=== PATIENT | male | born 1990 | race Caucasian/White ===

== ENCOUNTER → 2018-06-16 14:14 | Outpatient (CLI) | payer OTHER, SELFPAY ==
--- NOTE | 2018-06-16 14:23 | MR_ITS ---
MR knee LT wo con HISTORY: Twisting injury with pain with limited range of motion and instability ITS.REASON: LEFT KNEE PAIN ORDERING PHYSICIAN: Kostas Ramirez PATIENT AGE: 28 years Comparison: None TECHNIQUE: Standard multiplanar multiecho sequences are performed without contrast. FINDINGS: The cruciate ligaments are intact. The collateral ligaments, patellar tendon, and quadriceps tendon are intact. No meniscal tear is evident. There is mild lateral subluxation of the patella with discontinuity of the medial aspect of the medial patellofemoral ligament. There is a small knee joint effusion. Small amount of edema is noted along the distal and lateral aspect of the femur at the metaphyseal region of the lateral femoral condyle consistent with an area of bone bruise. There is also small amount of bone marrow edema involving the inferior tip of the patella. There is a small knee joint effusion IMPRESSION: 1. The findings are consistent with tear of the medial patellofemoral ligament with mild lateral subluxation of the patella. Bone marrow edema involves the lateral femoral condyle consistent with bone contusion likely from prior lateral patellar dislocation. 2. No evidence of meniscal tear or cruciate ligament tear
== END ==
PROVIDERS: PCP Physician Assistant; Visit Provider Orthopaedic Surgery Adult Reconstructive Orthopaedic Surgery
DX: M25.562 Pain in left knee (principal)
CPT/HCPCS: 73721

== ENCOUNTER 2018-07-06 15:00 | Outpatient (RCR) | payer OTHER, SELFPAY | END 2018-07-24 14:09 | disposition home or self-care (01) | LOC: PT.CARL 15:00 | PROVIDERS: Visit Provider Orthopaedic Surgery Adult Reconstructive Orthopaedic Surgery | DX: M25.562 Pain in left knee (principal) | CPT/HCPCS: 97014; 97110; 97163; G0283 ==

== ENCOUNTER 2018-11-20 16:30 | Outpatient (RCR) | payer OTHER, SELFPAY | END 2018-12-13 16:30 | disposition home or self-care (01) | LOC: PT.CARL 16:30 | PROVIDERS: Visit Provider Nurse Practitioner Family | DX: S83.006A Unspecified dislocation of unspecified patella, initial encounter (principal); M23.8X2 Other internal derangements of left knee | CPT/HCPCS: 97010; 97014; 97110; 97112; 97116; 97163; 97164; G0283 ==

== ENCOUNTER 2019-11-17 10:45 | Emergency (ER) | payer MEDICAID, SELFPAY ==
[2019-11-17 10:54] VITALS: BP 149/86; PULSE 87; RESP 14; TEMP 37; O2SAT 97; BMI 36.8
--- NOTE | 2019-11-17 11:02 | HMH.EDUTC ---
[facility] [place] Disposition Clinical Impression: Bug bite with infection Qualifiers: Encounter type: initial encounter Qualified Code(s): W57.XXXA - Bitten or stung by nonvenomous insect and other nonvenomous arthropods, initial encounter Disposition: Home, Self-Care Condition on Discharge: Good Instructions: DI for Insect Bites and Stings Additional Instructions: Keep the wound clean and dry. Apply the medication as directed. Follow up with your primary care physician. GO TO THE ER FOR ANY WORSENING SYMPTOMS OR CONCERNS Prescriptions: Mupirocin [Bactroban 2% Ointment 22gm tube] 1 applicatio TP TID 7 Days #1 tube Transmission Status: Received by [id number] Referrals: Melinda Palacios APRN [Primary Care Provider] - Time of Disposition: 11:21 Medical Decision Making - Medical Records Medical records reviewed: No: I reviewed the patient's medical records. - Gregory Inquiry Pt receiving controlled substance: No Vital Signs: 11/17/19 10:54 11/17/19 11:29 Temperature 98.6 F 98.6 F Temperature Source Oral Pulse Rate 87 Pulse Rate [Left Brachial] 87 Respiratory Rate 14 14 Blood Pressure 149/86 H Blood Pressure [Left Arm] 149/86 H Blood Pressure Mean [Left Arm] 107 Blood Pressure Source [Left Arm] Automatic Cuff Blood Pressure Position [Left Arm] Sitting 02 Sat by Pulse Oximetry 97 Oxygen Delivery Method Room Air Orders (Tests/Meds): ORDERS Category Date Time Status Wound Culture and Gram Stain Stat Micro 11/17/19 11:25 Results [facility] [place] HPI - General Stated complaint: spot on right arm Time Seen by Provider: 11/17/19 11:02 Mode of Arrival: Ambulatory Source of Information: Patient Limitations: No Limitations Description of Symptoms (Recalled from Triage Doc. by RN): PATIENT C/O RASH TO RIGHT ARM SINCE YESTERDAY THAT IS TENDER TO TOUCH HEENT Symptoms (Recalled from RN notes): No Resp Symptoms (Recalled from RN notes): No Skin Symptoms (Recalled from RN notes): Yes MS Symptoms (Recalled from RN notes): No Functional Status (Recalled from RN notes): WNL - History of Present Illness Provider Complaint: He c/o having a skin lesion on his right forearm. He first noticed this lesion yesterday. He denies any pain or itching at the site. He denies any injury or exposure to known irritants like poison cedrick. - Related Data Home Medications Medication Instructions Recorded Confirmed Cetirizine HCl [Zyrtec] 10 mg PO DAILY 11/17/19 11/17/19 Previous Rx's Medication Instructions Recorded Mupirocin [Bactroban 2% Ointment 1 applicatio TP TID 7 Days #1 tube 11/17/19 22gm tube] Allergies Allergy/AdvReac Type Severity Reaction Status Date / Time No Known Allergies Allergy Verified 03/15/19 13:59 - Worker's Comp Is this a Worker's Comp case?: No [facility] History - Hepatitis A Screen Drug use history?: No High risk sexual behaviors?: No History of sexually transmitted infection?: No Currently employed?: No Childcare worker?: No Do you have indoor plumbing?: Yes Do you have electricity?: Yes Attestation statement:: This patient has been screened for Hepatitis A risk factors. I have reviewed the patient's past medical history: Yes Medical History: Denies:: Diabetes Mellitus Type 1, Diabetes Mellitus Type 2 - Social History Smoking Status: Never smoker Alcohol Intake: never Occupational Status: other ROS Obtained: Yes All systems reviewed & no additional complaints - Constitutional Constitutional: Denies chills, Denies fever(s) - Eyes Eyes: Denies eye discharge - ENT Ears, Nose, Mouth, and Throat: Denies dizziness, Denies otalgia, Denies sore throat - Cardiovascular Cardiovascular: Denies chest pain - Respiratory Respiratory: No chest congestion, No cough Physical Exam - General General appearance: alert, in no apparent distress - Head Head exam: atraumatic, normocephalic, normal inspection - Eye Eye exam: Present: norm
[2019-11-17 11:29] VITALS: BP 149/86; PULSE 87; RESP 14; TEMP 37; O2SAT 97
== END 2019-11-17 11:33 | disposition home or self-care (01) ==
PROVIDERS: Emergency Provider Nurse Practitioner Family; PCP Nurse Practitioner Family
DX: S50.861A Insect bite (nonvenomous) of right forearm, initial encounter (principal); L08.9 Local infection of the skin and subcutaneous tissue, unspecified; W57.XXXA Bitten or stung by nonvenomous insect and other nonvenomous arthropods, initial encounter
CPT/HCPCS: 87070; 87077; 87186; 87205; 99201

== ENCOUNTER 2019-11-27 11:45 | Emergency (ER) | payer MEDICAID, SELFPAY ==
[2019-11-27 11:52] VITALS: BP 149/91; PULSE 81; RESP 18; TEMP 36.7; O2SAT 99; BMI 35.9
--- NOTE | 2019-11-27 12:01 | HMH.EDUTC ---
[facility] [place] [facility] [place] Clinical Impression: Sinusitis Qualifiers: Sinusitis location: unspecified location Chronicity: acute Recurrence: non-recurrent Qualified Code(s): J01.90 - Acute sinusitis, unspecified Asthma exacerbation Qualifiers: Asthma severity: unspecified severity Asthma persistence: unspecified Qualified Code(s): J45.901 - Unspecified asthma with (acute) exacerbation Disposition: Home, Self-Care Condition on Discharge: Good Instructions: Sinusitis, DI for Sinusitis Additional Instructions: Drink plenty of fluids. Take tylenol or ibuprofen for pain or fever. Take the medications as directed. Follow up with your regular doctor. GO TO THE ER FOR ANY WORSENING SYMPTOMS Prescriptions: methylPREDNISolone [Medrol] 4 mg PO DIRECTED 6 Days #21 tab.ds.pk Transmission Status: Received by [id number] Azithromycin [Z-Ra 250mg Tab*] 250 mg PO UD DOSE PK #6 tab Transmission Status: Received by [facility] Referrals: PCP,No [Primary Care Provider] - Forms: Work/School Release Time of Disposition: 12:22 Medical Decision Making - Medical Records Medical records reviewed: No: I reviewed the patient's medical records. - Gregory Inquiry Pt receiving controlled substance: No Vital Signs: 11/27/19 11:52 11/27/19 12:35 Temperature 98.1 F 98.1 F Temperature Source Oral Pulse Rate 81 Pulse Rate [Right Brachial] 81 Respiratory Rate 18 18 Blood Pressure 149/91 H Blood Pressure [Right Arm] 149/91 H Blood Pressure Mean [Right Arm] 110 Blood Pressure Source [Right Arm] Automatic Cuff Blood Pressure Position [Right Arm] Sitting 02 Sat by Pulse Oximetry 99 Oxygen Delivery Method Room Air [facility] [place] [facility] [place] HPI - General Stated complaint: sinus infection Time Seen by Provider: 11/27/19 12:01 Mode of Arrival: Ambulatory Source of Information: Patient Limitations: No Limitations Description of Symptoms (Recalled from Triage Doc. by RN): PATIENT C/O SINUS PRESSURE AND DRAINAGE AND COUGH X 2 DAYS HEENT Symptoms (Recalled from RN notes): Yes Resp Symptoms (Recalled from RN notes): Yes Skin Symptoms (Recalled from RN notes): No MS Symptoms (Recalled from RN notes): No Functional Status (Recalled from RN notes): WNL - History of Present Illness Provider Complaint: He c/o 2 days of worsening sinus congestion. He states that he has allergies and asthma and he gets sinus infections this time of year often. He denies any known exposure to covid and he does not want to be tested today for it. He denies any fever or chills. - Related Data Home Medications Medication Instructions Recorded Confirmed Cetirizine HCl [Zyrtec] 10 mg PO DAILY 11/17/19 11/17/19 Previous Rx's Medication Instructions Recorded Mupirocin [Bactroban 2% Ointment 1 applicatio TP TID 7 Days #1 tube 11/17/19 22gm tube] Azithromycin [Z-Ra 250mg Tab*] 250 mg PO UD DOSE PK #6 tab 11/27/19 methylPREDNISolone [Medrol] 4 mg PO DIRECTED 6 Days #21 11/27/19 tab.ds.pk Allergies Allergy/AdvReac Type Severity Reaction Status Date / Time No Known Allergies Allergy Verified 03/15/19 13:59 - Worker's Comp Is this a Worker's Comp case?: No [facility] History - Hepatitis A Screen Drug use history?: No High risk sexual behaviors?: No History of sexually transmitted infection?: No Currently employed?: No Childcare worker?: No Do you have indoor plumbing?: Yes Do you have electricity?: Yes Attestation statement:: This patient has been screened for Hepatitis A risk factors. I have reviewed the patient's past medical history: Yes Medical History: Denies:: Diabetes Mellitus Type 1, Diabetes Mellitus Type 2 - Social History Smoking Status: Never smoker Alcohol Intake: never Occupational Status: other ROS Obtained: Yes All systems reviewed & no additional complaints - Constitutional Constitutional: Denies chills, Denies fever(s), Reports poor appetite, Reports malaise - Eyes Eyes: Denies
[2019-11-27 12:35] VITALS: BP 149/91; PULSE 81; RESP 18; TEMP 36.7; O2SAT 99
== END 2019-11-27 12:37 | disposition home or self-care (01) ==
PROVIDERS: Emergency Provider Nurse Practitioner Family
DX: J01.90 Acute sinusitis, unspecified (principal); J45.901 Unspecified asthma with (acute) exacerbation
CPT/HCPCS: 99201

== ENCOUNTER 2020-05-28 16:27 | Emergency (ER) | payer MEDICAID, SELFPAY ==
[2020-05-28 16:30] VITALS: BP 140/91; PULSE 89; RESP 17; TEMP 37; O2SAT 98; BMI 37.3
[2020-05-28 16:47] LABS: UTC Strep Screen (Rapid) Positive (Negative)
--- NOTE | 2020-05-28 16:47 | HMH.EDUTC ---
[facility] Disposition Clinical Impression: Cough, Strep throat Disposition: Home, Self-Care Condition on Discharge: Good Instructions: DI for Strep Throat, Strep Throat, Penicillin V Potassium, Cough Additional Instructions: *Monitor Temp, Over the counter Motrin or Tylenol as directed/as needed Tylenol every 4 hours and Motrin every 6 hours (as long as your family doctor has told you that you can take it) for fever or pain. and straight to ER if unable to lower temp less than 101.0 after medication given *Warm salt water gargles may help to soothe the throat *Throat Lozenges *Warm fluids like tea with honey may help to soothe the throat *Sleep elevated *Humidifier/Vaporizer *Bromfed may cause drowsiness. Know how it effects you (your child) before driving, caring for small child, or sending your child to school. Not other antihistamines/allergy medications while taking bromfed *If you did not take Penicillin shot or was unable to, start taking antibiotic immediately and make sure that you take it for the FULL length of time although you should start to feel better in 24-48 hours *change toothbrush and toothpaste 24-48 hours after starting to take antibiotics so you do not reinfect yourself Monitor Temp. Tylenol and/or Ibuprofen as needed. ER if fever is no less than 101 despite alternating Tylenol and Ibuprofen * Encourage fluids, water, Gatorade, powerade, pedialyte if infant/toddler/or child *Cold fluids, popsicles and ice cream may feel good on his throat Follow up IMMEDIATELY for new or worsening symptoms or no Noticeable improvement over the next 48-72 hours. 911 for difficulty breathing or swallowing Prescriptions: Brompheniramine/Pseudoephed/Dm [Bromfed Dm Cough Syrup] 5 - 10 ml PO Q46H PRN #200 ml PRN Reason: Cough [facility]: [facility] Penicillin V Potassium 500 mg PO BID 10 Days #20 tab Transmission Status: Pending to [facility] Referrals: Melinda Palacios APRN [Primary Care Provider] - As needed Forms: Work/School Release Time of Disposition: 16:53 Medical Decision Making - Gregory Inquiry Pt receiving controlled substance: No Gregory was queried for this patient: No Vital Signs: 05/28/20 16:30 Temperature 98.6 F Temperature Source Oral Pulse Rate [Right Brachial] 89 Respiratory Rate 17 Blood Pressure [Right Arm] 140/91 H Blood Pressure Mean [Right Arm] 107 Blood Pressure Source [Right Arm] Automatic Cuff Blood Pressure Position [Right Arm] Sitting 02 Sat by Pulse Oximetry 98 Oxygen Delivery Method Room Air - Lab Data Lab results reviewed: Yes: I reviewed the patient's lab results. [facility] HPI - General Stated complaint: sore throat Time Seen by Provider: 05/28/20 16:47 Mode of Arrival: Ambulatory Source of Information: Patient Limitations: No Limitations Description of Symptoms (Recalled from Triage Doc. 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
[2020-05-28 16:48] VITALS: BP 140/91; PULSE 89; RESP 17; TEMP 37; O2SAT 98
== END 2020-05-28 16:57 | disposition home or self-care (01) ==
PROVIDERS: Emergency Provider Nurse Practitioner; PCP Nurse Practitioner Family
DX: J02.0 Streptococcal pharyngitis (principal)
CPT/HCPCS: 87880; 99202; G0463

== ENCOUNTER 2020-06-11 11:27 | Emergency (ER) | payer MEDICAID, SELFPAY ==
--- NOTE | 2020-06-11 11:20 | ECG_ITS ---
APPROVED REPORT Exam: Resting ECG HR:83 bpm ECG Measurements Heart Rate 83 AXES ID 160 P 43 QRSd 102 QRS 40 QT 360 T 36 QTc 423 Conclusion Normal sinus rhythm Normal ECG Electronically signed by : Blade Kelley, 06/11/2020 17:33:53
[2020-06-11 11:27] VITALS: BP 134/107; PULSE 91; RESP 17; TEMP 36.7; O2SAT 97; BMI 37.3
--- NOTE | 2020-06-11 11:28 | XR_ITS ---
PROCEDURE: XR CHEST 2V CLINICAL HISTORY: CP Chest pain COMPARISON: CR XR CHEST 2V from 05/26/2019 FINDINGS: The cardiomediastinal silhouette and pulmonary vascularity are within normal limits. Mildly elevated left hemidiaphragm with minimal left basilar atelectasis. The remaining lungs are clear. No acute bony abnormalities. IMPRESSION: Minimal left basilar atelectasis Dictated by: Jelani Ceballos MD 06/11/2020 12:44 Jelani Ceballos MD in [place] 06/11/2020 12:44
[2020-06-11 11:30] VITALS: BP 149/97; PULSE 82; RESP 18; O2SAT 95
--- NOTE | 2020-06-11 11:39 | HMH.EDGENADL ---
ED Disposition Clinical Impression: Chest pain Qualifiers: Chest pain type: unspecified Qualified Code(s): R07.9 - Chest pain, unspecified Disposition: Home, Self-Care Condition on Discharge: Good Additional Instructions: Use Pepto-Bismol. Follow a bland diet without alcohol and avoid NSAIDs or any other agents that could upset your stomach. Follow-up with your PCP. Return immediately if any recurrent symptoms or new or worsening symptoms. - Critical Care Critical Care Time: No Attestation: On , the high probability of a clinically significant, sudden or life threatening deterioration of the following system(s) required my full and direct attention, intervention and personal management. The time I documented below is in addition to time spent performing reported procedures but includes the following listed in this critical care notation. Medical Decision Making - Medical Records Medical records reviewed: Yes: I reviewed the patient's medical records. - Gregory Inquiry Pt receiving controlled substance: No Vital Signs: 06/11/20 11:27 06/11/20 11:30 06/11/20 11:45 Temperature 98.1 F Temperature Source Oral Pulse Rate 82 82 Pulse Rate [Right] 91 H Respiratory Rate 17 18 20 Blood Pressure 149/97 H 149/97 H Blood Pressure [Right Arm] 134/107 H Blood Pressure Mean [Right Arm] 116 02 Sat by Pulse Oximetry 97 95 95 Oxygen Delivery Method Room Air 06/11/20 12:00 Temperature Temperature Source Pulse Rate 84 Pulse Rate [Right] Respiratory Rate 21 Blood Pressure 124/85 Blood Pressure [Right Arm] Blood Pressure Mean [Right Arm] 02 Sat by Pulse Oximetry 95 Oxygen Delivery Method - Lab Data Lab Results 06/11/20 11:26: WBC 8.8, RBC 5.93, Hgb 17.2, Hct 51.7, MCV 87.3, MCH 29.1, MCHC 33.3, RDW 13.1, Plt Count 284, MPV 8.2, Neut % (Auto) 59.4, Lymph % (Auto) 31.8, [place] % (Auto) 5.1, Eos % (Auto) 2.3, Baso % (Auto) 1.3, Neut # (Auto) 5.2, Lymph # (Auto) 2.8, [place] # (Auto) 0.5, Eos # (Auto) 0.2, Baso # (Auto) 0.1 06/11/20 11:26: Sodium 141, Potassium 3.4 L, Chloride 100, Carbon Dioxide 30, Anion Gap 14.4, BUN 17, Creatinine 0.80, Estimated Creat Clear 236, Estimated GFR 113, Est GFR ( Amer) 136, Calcium 9.8, Troponin I < 0.01 06/11/20 11:26: Lipase 47 Result diagrams: 06/11/20 11:26 06/11/20 11:26 Orders (Tests/Meds): ED MEDICATIONS Discontinued Medications Generic Name Dose Route Start Last Admin Trade Name Freq PRN Reason Stop Dose Admin Belladonna Alkaloids 60 ml 06/11/20 11:44 06/11/20 11:46 Gi Cocktail 60ml Udc PO 06/11/20 11:45 60 ml ONCE ONE Administration ORDERS Category Date Time Status Basic Metabolic Panel Stat Lab 06/11/20 11:26 Results Troponin I Q3H Lab 06/11/20 14:30 Ordered Troponin I Q3H Lab 06/11/20 17:30 Ordered Troponin I Stat Lab 06/11/20 11:26 Results - ECG Data Tracing #1 I reviewed this ECG and interpreted as documented below: EKG demonstrates normal sinus rhythm at 83 bpm; no acute ST elevation/depression; no T wave inversion; QTC 423 ms Medical Decision Narrative: Patient is a 30-year-old male presenting with chest pain. EKG obtained immediately upon arrival demonstrates no acute ischemic process. ACS on the differential so cardiac enzyme testing will be obtained patient will remain on cardiac monitors throughout entirety of ER stay. Other differential diagnoses do include but are not limited to pneumothorax versus pneumonia versus anemia versus GERD versus gastritis versus pancreatitis versus costochondritis versus diffuse esophageal spasm. X-ray to be obtained to ensure no pneumothorax or other acute cardiopulmonary abnormality. Basic lab work with lipase will also be obtained. I am concerned the patient is having some dyspepsia and substernal/epigastric pain after being on steroids. He could be developing ulcer with gastritis. Again no melena or hematochezia. GI cocktail given in the ER. Labs nonacti
[2020-06-11 11:43] LABS: Chloride 100 mmol/L (98-107); Sodium 141 mmol/L (136-145)
[2020-06-11 11:44] LABS: Potassium 3.4 mmoL/L (3.5-5.1)
[2020-06-11 11:45] VITALS: BP 149/97; PULSE 82; RESP 20; O2SAT 95
[2020-06-11 11:46] LABS: Blood Urea Nitrogen 17 mg/dl (9-20); Creatinine Clearance Estimated 236 mL/min (50-200); Estimated Glomerular Filt Rate 113 ml/min (>60); GFR (African American) 136 ML/MIN (>60)
[2020-06-11 11:47] LABS: Anion Gap 14.4 mEq/L (5-15); Carbon Dioxide 30 mmol/L (22.0-30.0)
[2020-06-11 11:50] LABS: Basophils # 0.1 K/mm3 (0-0.2); Basophils % 1.3 % (0.1-2.0); Eosinophils # 0.2 K/mm3 (0.0-0.4); Eosinophils % 2.3 % (0.1-12.0); Hematocrit 51.7 % (42.0-52.0); Hemoglobin 17.2 g/dL (14.1-18.0); Lymphocytes # 2.8 K/mm3 (0.7-4.5); Lymphocytes % 31.8 % (10-50); Mean Corpuscular HGB Conc 33.3 g/dL (31.8-35.4); Mean Corpuscular Hemoglobin 29.1 pg (27.0-31.2); Mean Corpuscular Volume 87.3 fl (80-94); Mean Platelet Volume 8.2 fl (7.4-10.4); Monocytes # 0.5 K/mm3 (0.1-1.0); Monocytes % 5.1 % (1.7-9.3); Neutrophils # 5.2 K/mm3 (1.8-7.8); Neutrophils % 59.4 % (37.0-80.0); Platelet Count 284 K/mm3 (142-424); Red Blood Count 5.93 M/mm3 (4.60-6.20); Red Cell Distribution Width 13.1 % (11.5-17.5); White Blood Count 8.8 K/mm3 (4.8-10.8)
[2020-06-11 11:53] LABS: Calcium 9.8 mg/dl (8.4-10.2)
[2020-06-11 11:54] LABS: Lipase 47 U/L (23-300)
[2020-06-11 12:00] VITALS: BP 124/85; PULSE 84; RESP 21; O2SAT 95
[2020-06-11 12:13] LABS: Troponin I < 0.01 ng/ml (0.00-0.034)
--- NOTE | 2020-06-11 12:48 | PC.NURSE ---
MD at bedside. Updating pt on plan of care and results.
[2020-06-11 13:16] VITALS: BP 125/79; PULSE 87; RESP 19; TEMP 36.7; O2SAT 98
[2020-06-11 13:29] LABS: Glucose 87 mg/dl (74-100)
== END 2020-06-11 13:15 | disposition home or self-care (01) ==
PROVIDERS: Emergency Provider Emergency Medicine; PCP Nurse Practitioner Family
DX: R07.9 Chest pain, unspecified (principal); J45.909 Unspecified asthma, uncomplicated
CPT/HCPCS: 71046; 80048; 83690; 84484; 85025; 93005; 99282

== ENCOUNTER 2020-10-07 10:06 | Emergency (ER) | payer MEDICAID, SELFPAY ==
[2020-10-07 10:30] VITALS: BP 138/94; PULSE 82; RESP 19; TEMP 36.6; O2SAT 98; BMI 34.5
[2020-10-07 10:35] VITALS: BMI 32.1
--- NOTE | 2020-10-07 10:35 | XR_ITS ---
PROCEDURE: XR RIBS RT MIN 3V W CXR1V CLINICAL INDICATION: FELL OFF LADDER Anterior rib pain COMPARISON: CR XR CHEST 2V from 05/26/2019 CR XR CHEST 2V from 06/11/2020 FINDINGS: Frontal view of the chest shows no acute finding. Multiple views of the right ribs are obtained. No displaced rib fracture is evident. There is some cortical regularity involving the anterior aspect of the right 6th and 7th ribs suggesting nondisplaced fractures. No evidence of pneumothorax. IMPRESSION: There is a question of a nondisplaced fracture of the right 6th and 7th ribs anteriorly otherwise negative Dictated by: Jelani Ceballos MD 10/07/2020 11:04 Jelani Ceballos MD in [place] 10/07/2020 11:04
[2020-10-07 11:00] VITALS: BP 138/94; PULSE 82; RESP 19; TEMP 36.6; O2SAT 98
--- NOTE | 2020-10-07 11:02 | HMH.EDUTC ---
[facility] [place] Disposition Clinical Impression: Ribs, multiple fractures Qualifiers: Encounter type: initial encounter Fracture type: closed Laterality: right Qualified Code(s): S22.41XA - Multiple fractures of ribs, right side, initial encounter for closed fracture Disposition: Home, Self-Care Condition on Discharge: Good Instructions: Rib Fracture, DI for Rib Fracture, Etodolac Additional Instructions: *Etodlac angella 6 hours with meal as needed for pain/inflammation Over the counter lidocaine patches may help with pain Stop taking Ibuprofen and start Etodlac *Not additional anti-inflammatory like Ibuprofen, motrin, aleve, advil with the above amount of Etodolac. You can still take Tylenol every 4 hours as needed if you need something else for pain *Ice 20 minutes every 2 hours for the first 48 hours after the initial injury followed by moist heat every 20 minutes 3-4 times a day to affected area *Keep this area active, no movement leads to more stiffness, However take it easy and avoid heavy lifting pushing or pulling *Follow up with you family doctor if no improvement for further treatment Return if needed Straight to ER if any life threatening symptoms Prescriptions: Etodolac 200 mg PO Q6HP PRN #20 cap PRN Reason: Moderate Pain Transmission Status: Pending to [id number] Referrals: Melinda Palacios APRN [Primary Care Provider] - As needed Time of Disposition: 11:18 Medical Decision Making - Gregory Inquiry Pt receiving controlled substance: No Gregory was queried for this patient: No Vital Signs: 10/07/20 10:30 10/07/20 11:00 Temperature 97.8 F 97.8 F Temperature Source Oral Pulse Rate 82 Pulse Rate [Right Brachial] 82 Respiratory Rate 19 19 Blood Pressure 138/94 H Blood Pressure [Right Arm] 138/94 H Blood Pressure Mean [Right Arm] 108 Blood Pressure Source [Right Arm] Automatic Cuff Blood Pressure Position [Right Arm] Sitting 02 Sat by Pulse Oximetry 98 Oxygen Delivery Method Room Air - Radiology Data #1 Image(s): Chest (with right ribs) Image Reviewed: Yes I have reviewed radiologist's interpretation IMPRESSION: There is a question of a nondisplaced fracture of the right 6th and 7th ribs anteriorly otherwise negative [facility] [place] HPI - General Stated complaint: ao [id number] @1600 fell off latter 7ft injured r side Time Seen by Provider: 10/07/20 11:02 Mode of Arrival: Ambulatory Source of Information: Patient Limitations: No Limitations Description of Symptoms (Recalled from Triage Doc. by RN): PATIENT STATE HE FELL APPROX 7 FEET OFF OF A LADDER ON 10/04/20. C/O PAIN TO RIGHT RIBS HEENT Symptoms (Recalled from RN notes): No Resp Symptoms (Recalled from RN notes): No Skin Symptoms (Recalled from RN notes): No MS Symptoms (Recalled from RN notes): Yes Functional Status (Recalled from RN notes): WNL - History of Present Illness Provider Complaint: Patient state that he fell off ladder on 10/04/20 and landed on his right side on a bar, was seen in ER at [place] States that they did xrays and stuff and put him on Motrin but the pain is not improved and hurts in his right ribs when he takes a deep breath or moves certain ways States that he came in wanting to get checked again and see if there is anything else he can get for the pain - Related Data Previous Rx's Medication Instructions Recorded Etodolac 200 mg PO Q6HP PRN #20 cap 10/07/20 Allergies Allergy/AdvReac Type Severity Reaction Status Date / Time No Known Allergies Allergy Verified 03/15/19 13:59 - Worker's Comp Is this a Worker's Comp case?: No [facility] History - Hepatitis A Screen Drug use history?: No High risk sexual behaviors?: No History of sexually transmitted infection?: No Currently employed?: No Childcare worker?: No Do you have indoor plumbing?: Yes Do you have electricity?: Yes Attestation statement:: This patient has been screened for Hepatitis A risk factors. I have reviewed the patient's past medi
== END 2020-10-07 11:29 | disposition home or self-care (01) ==
PROVIDERS: Emergency Provider Nurse Practitioner; PCP Nurse Practitioner Family
DX: S22.41XA Multiple fractures of ribs, right side, initial encounter for closed fracture (principal); W11.XXXA Fall on and from ladder, initial encounter; Y92.019 Unspecified place in single-family (private) house as the place of occurrence of the external cause
CPT/HCPCS: 71101; 99202; G0463

== ENCOUNTER 2020-10-29 11:06 | Emergency (ER) | payer MEDICAID, SELFPAY ==
[2020-10-29 12:05] VITALS: BP 126/91; PULSE 103; RESP 18; TEMP 37; O2SAT 95; BMI 36.6
--- NOTE | 2020-10-29 12:11 | HMH.EDUTC ---
[facility] [place] Clinical Impression: Viral syndrome, Encounter for laboratory testing for COVID-19 virus Disposition: Home, Self-Care Condition on Discharge: Good Instructions: DI for COVID-19 (Suspected or Confirmed ), Preventing the Spread of Coronavirus Discharge Instructions Additional Instructions: *Monitor Temp, Over the counter Motrin or Tylenol as directed/as needed Tylenol every 4 hours and Motrin every 6 hours (as long as your family doctor has told you that you can take it) for fever or pain. and straight to ER if unable to lower temp less than 101.0 after medication given *Warm salt water gargles may help to soothe the throat *Throat Lozenges *Warm fluids like tea with honey may help to soothe the throat *Sleep elevated *Humidifier/Vaporizer Over the counter cough medication like Robitussin may help with cough and mucous Make sure to drink plenty of fluids and eat healthy diet Follow up IMMEDIATELY for new or worsening symptoms or no Noticeable improvement over the next 48-72 hours. 911 for difficulty breathing or swallowing You were tested for today for COVID19 your test result should be back in the next 24-48 hours, you was given instructions on how to [facility] for your results. If you do not have internet or access you may call the [facility]. You was given a handout with instructions for Self Quarantine and Self isolation for while you wait on test results and what to do if they are positive If you are positive the Health Dept will be contacting you also Make sure to take your Vitamins Vit. C Vit D and Zinc if you can take them Referrals: Melinda Palacios APRN [Primary Care Provider] - As needed Forms: Work/School Release Time of Disposition: 12:44 Medical Decision Making - Gregory Inquiry Pt receiving controlled substance: No Gregory was queried for this patient: No Vital Signs: 10/29/20 12:05 Temperature 98.6 F Temperature Source Oral Pulse Rate [Left Radial] 103 H Respiratory Rate 18 Blood Pressure [Left Arm] 126/91 H Blood Pressure Mean [Left Arm] 102 Blood Pressure Source [Left Arm] Automatic Cuff Blood Pressure Position [Left Arm] Sitting 02 Sat by Pulse Oximetry 95 Oxygen Delivery Method Room Air Orders (Tests/Meds): ORDERS Category Date Time Status Covid-19 Nasal PCR ([facility]) Routine Lab 10/29/20 12:08 [place] [facility] [place] - General Stated complaint: sore throat, body aches, fever Time Seen by Provider: 10/29/20 12:11 Mode of Arrival: Ambulatory Source of Information: Patient Limitations: No Limitations Description of Symptoms (Recalled from Triage Doc. by RN): pt c/o sore throat, body aches, fever, headache and cough. Pt reports symtpoms began 4 days ago. Pt is also having similar symptoms and was exposed to a positive covid pt. HEENT Symptoms (Recalled from RN notes): Yes (sore throat) Resp Symptoms (Recalled from RN notes): Yes (cough) Skin Symptoms (Recalled from RN notes): No MS Symptoms (Recalled from RN notes): No Functional Status (Recalled from RN notes): n/a - History of Present Illness Provider Complaint: Patient states that he has not felt well for about 4 days States that he has been having sore throat, headache, cough, and body aches State that mother law was positive for COVID but he wasnt around her but is having same symptoms and was around her so he wanted to get tested for COVID - Related Data Allergies Allergy/AdvReac Type Severity Reaction Status Date / Time No Known Allergies Allergy Verified 03/15/19 13:59 - Worker's Comp Is this a Worker's Comp case?: No [facility] History - Hepatitis A Screen Drug use history?: No High risk sexual behaviors?: No History of sexually transmitted infection?: No Currently employed?: No Childcare worker?: No Do you have indoor plumbing?: Yes Do you have electricity?: Yes Attestation statement:: This patient has been screened for Hepatitis A risk factors. I have reviewed the patient
[2020-10-29 12:57] VITALS: BP 126/91; PULSE 103; RESP 18; TEMP 37; O2SAT 95
== END 2020-10-29 12:58 | disposition home or self-care (01) ==
PROVIDERS: Emergency Provider Nurse Practitioner; PCP Nurse Practitioner Family
DX: U07.1 COVID-19 (principal)
CPT/HCPCS: 99202; G0463; U0003

== ENCOUNTER 2021-05-30 12:17 | Emergency (ER) | payer MEDICAID, SELFPAY ==
--- NOTE | 2021-05-30 13:39 | HMH.EDUTC ---
[facility] [place] Disposition Clinical Impression: Dysuria UTI (urinary tract infection) Qualifiers: Urinary tract infection type: site unspecified Hematuria presence: without hematuria Qualified Code(s): N39.0 - Urinary tract infection, site not specified Disposition: Home, Self-Care Condition on Discharge: Good Instructions: Urinary Tract Infection, DI for Urinary Tract Infection (UTI) Additional Instructions: Drink plenty of fluids. Take tylenol or ibuprofen for pain or fever. Take the medications as directed. Follow up with your regular doctor. GO TO THE ER FOR ANY WORSENING SYMPTOMS Prescriptions: Ondansetron [Zofran 4mg ODT] 4 mg PO Q8HP PRN #12 tab PRN Reason: Nausea Transmission Status: Received by [id number] Doxycycline Monohydrate [Doxycycline [place] 100mg Tab] 100 mg PO Q12 10 Days #20 tab Transmission Status: Received by [id number] Referrals: Melinda Palacios APRN [Primary Care Provider] - Time of Disposition: 14:20 Medical Decision Making - Medical Records Medical records reviewed: No: I reviewed the patient's medical records. - Gregory Inquiry Pt receiving controlled substance: No Vital Signs: 05/30/21 13:44 05/30/21 14:38 Temperature 98.2 F 98.2 F Temperature Source Oral Pulse Rate 83 Pulse Rate [Left] 83 Respiratory Rate 20 20 Blood Pressure 154/102 H Blood Pressure [Right Arm] 154/102 H Blood Pressure Mean [Right Arm] 119 02 Sat by Pulse Oximetry 95 - Lab Data Lab results reviewed: Yes: I reviewed the patient's lab results. Lab Results 05/30/21 13:47: Urine Color Yellow, Urine Appearance Turbid, Urine pH 7.0, Ur Specific [place] 1.020, Urine Protein Negative, Urine Glucose (UA) Negative, Urine Ketones Negative, Urine Blood Negative, Urine Nitrate Negative, Urine Bilirubin Negative, Urine Urobilinogen 0.2, Ur Leukocyte Esterase Trace [facility] [place] HPI - General Stated complaint: UTI Time Seen by Provider: 05/30/21 13:39 - History of Present Illness Provider Complaint: He states that for the past 2 days he has had urinary urgency, frequency, and low back pain. He denies any fever or chills. - Related Data Previous Rx's Medication Instructions Recorded Doxycycline Monohydrate 100 mg PO Q12 10 Days #20 tab 05/30/21 [Doxycycline [place] 100mg Tab] Ondansetron [Zofran 4mg ODT] 4 mg PO Q8HP PRN #12 tab 05/30/21 Allergies Allergy/AdvReac Type Severity Reaction Status Date / Time No Known Allergies Allergy Verified 03/15/19 13:59 [facility] History - Hepatitis A Screen Attestation statement:: This patient has been screened for Hepatitis A risk factors. I have reviewed the patient's past medical history: Yes Medical History: Denies:: Diabetes Mellitus Type 1, Diabetes Mellitus Type 2 - Social History Smoking Status: Never smoker Alcohol Intake: never Occupational Status: other ROS Obtained: Yes All systems reviewed & no additional complaints - Constitutional Constitutional: Denies chills, Denies fever(s) - Eyes Eyes: Denies eye discharge - ENT Ears, Nose, Mouth, and Throat: Denies dizziness, Denies otalgia, Denies sore throat - Cardiovascular Cardiovascular: Denies chest pain - Respiratory Respiratory: Denies chest congestion, Denies cough, Denies dyspnea, Denies stridor, Denies wheezing - Genitourinary Male Genitourinary: Reports as per HPI - Musculoskeletal Musculoskeletal: Reports back pain - Integumentary/Breasts Skin/Breast: Denies rash - Neurologic Neurologic: Denies tingling/numbness/burning sensations Physical Exam - General General appearance: alert, in no apparent distress - Head Head exam: atraumatic, normocephalic, normal inspection - Eye Eye exam: Present: normal appearance, PERRL, EOMI - ENT ENT exam: Present: normal exam, normal oropharynx, mucous membranes moist, TM's normal bilaterally, normal external ear exam - Neck Neck exam: Present: normal inspecti
[2021-05-30 13:44] VITALS: BP 154/102; PULSE 83; RESP 20; TEMP 36.8; O2SAT 95; BMI 37.3
[2021-05-30 13:47] LABS: Apearance,Urine Turbid (Clear); Blood, Urine Negative (Negative); Color,Urine Yellow (Yellow); Glucose,Urine (UA) Negative (Negative); Ketones,Urine Negative (Negative); Protein,Urine Negative (Negative)
[2021-05-30 13:48] LABS: Bilirubin,Urine Negative (Negative); UTC Leukocyte Esterase,Urine Trace (Negative); UTC Nitrate,Urine Negative (Negative); Urobilinogen,Urine 0.2 EU/dl (0.2)
[2021-05-30 14:38] VITALS: BP 154/102; PULSE 83; RESP 20; TEMP 36.8
[2021-06-03 05:10] LABS: Neisseria gonorrhoeae, NAA Negative (Negative)
== END 2021-05-30 14:41 | disposition home or self-care (01) ==
PROVIDERS: Emergency Provider Nurse Practitioner Family; PCP Nurse Practitioner Family
DX: N39.0 Urinary tract infection, site not specified (principal)
CPT/HCPCS: 81003; 87086; 87491; 87591; 99213; G0463

== ENCOUNTER 2021-09-14 15:19 | Emergency (ER) | payer MEDICAID, SELFPAY ==
[2021-09-14 15:50] VITALS: BP 157/94; PULSE 120; RESP 19; TEMP 37.1; O2SAT 95; BMI 37.3
[2021-09-14 16:11] LABS: UTC Strep Screen (Rapid) Positive (Negative)
[2021-09-14 16:36] VITALS: BP 157/94; PULSE 120; RESP 19; TEMP 37.1; O2SAT 95
--- NOTE | 2021-09-14 16:41 | HMH.EDUTC ---
[facility] [place] Clinical Impression: Strep throat Disposition: Home, Self-Care Condition on Discharge: Good Instructions: Strep Throat, DI for Strep Throat Additional Instructions: *Monitor Temp, Over the counter Motrin or Tylenol as directed/as needed Tylenol every 4 hours and Motrin every 6 hours (as long as your family doctor has told you that you can take it) for fever or pain. and straight to ER if unable to lower temp less than 101.0 after medication given *Warm salt water gargles may help to soothe the throat *Throat Lozenges *Warm fluids like tea with honey may help to soothe the throat *Sleep elevated *Humidifier/Vaporizer *If you did not take Penicillin shot or was unable to, start taking antibiotic immediately and make sure that you take it for the FULL length of time although you should start to feel better in 24-48 hours *change toothbrush and toothpaste 24-48 hours after starting to take antibiotics so you do not reinfect yourself Monitor Temp. Tylenol and/or Ibuprofen as needed. ER if fever is no less than 101 despite alternating Tylenol and Ibuprofen * Encourage fluids, water, Gatorade, powerade, pedialyte if infant/toddler/or child *Cold fluids, popsicles and ice cream may feel good on his throat Follow up IMMEDIATELY for new or worsening symptoms or no Noticeable improvement over the next 48-72 hours. 911 for difficulty breathing or swallowing Prescriptions: Amoxicillin [Amoxicillin 875MG Tab] 875 mg PO Q12H #20 tab [facility] methylPREDNISolone [Medrol 4mg tab] 4 mg PO DIRECTED #21 tab [facility]: [facility] Referrals: Melinda Palacios APRN [Primary Care Provider] - As needed Forms: Work/School Release Time of Disposition: 16:48 Medical Decision Making - Gregory Inquiry Pt receiving controlled substance: No Gregory was queried for this patient: No Vital Signs: 09/14/21 15:50 09/14/21 16:36 Temperature 98.7 F 98.7 F Temperature Source Oral Pulse Rate 120 H Pulse Rate [Right Brachial] 120 H Respiratory Rate 19 19 Blood Pressure 157/94 H Blood Pressure [Right Arm] 157/94 H Blood Pressure Mean [Right Arm] 115 Blood Pressure Source [Right Arm] Automatic Cuff Blood Pressure Position [Right Arm] Sitting 02 Sat by Pulse Oximetry 95 Oxygen Delivery Method Room Air - Lab Data Lab results reviewed: Yes: I reviewed the patient's lab results. Lab Results 09/14/21 16:03: Strep Scn Rapid Clinic Positive A [facility] [place] HPI - General Stated complaint: sore throat, exp to strep Time Seen by Provider: 09/14/21 16:41 Mode of Arrival: Ambulatory Source of Information: Patient Limitations: No Limitations Description of Symptoms (Recalled from Triage Doc. by RN): PATIENT C/O SORE THROAT, COUGH, AND FATIGUE. EXPOSED TO STREP RECENTLY HEENT Symptoms (Recalled from RN notes): Yes Resp Symptoms (Recalled from RN notes): Yes Skin Symptoms (Recalled from RN notes): No MS Symptoms (Recalled from RN notes): No Functional Status (Recalled from RN notes): WNL - History of Present Illness Provider Complaint: Patient states that he was recently around someone that had strep throat and for the last few days his throat was hurting and he was feeling achy with nasal congestion States that he feels like he does when he has strep throat so he came in - Related Data Previous Rx's Medication Instructions Recorded Amoxicillin [Amoxicillin 875MG 875 mg PO Q12H #20 tab 09/14/21 Tab] methylPREDNISolone [Medrol 4mg 4 mg PO DIRECTED #21 tab 09/14/21 tab] Allergies Allergy/AdvReac Type Severity Reaction Status Date / Time No Known Allergies Allergy Verified 03/15/19 13:59 - Worker's Comp Is this a Worker's Comp case?: No [facility] History - Hepatitis A Screen Attestation statement:: This patient has been screened for Hepatitis A risk factors. I have reviewed the patient's past medical history:
== END 2021-09-14 16:53 | disposition home or self-care (01) ==
PROVIDERS: Emergency Provider Nurse Practitioner; PCP Nurse Practitioner Family
DX: J02.0 Streptococcal pharyngitis (principal)
CPT/HCPCS: 87880; 99212; G0463

== ENCOUNTER 2022-03-01 08:26 | Emergency (ER) | payer MEDICAID, SELFPAY ==
--- NOTE | 2022-03-01 08:28 | EXP.UTC ---
Discharge Plan Disposition Patient Disposition: Home, Self-Care Condition: Good Prescriptions Prescriptions: New azithromycin [Zithromax] 250 mg tablet 250 mg PO UD DOSE PK Qty: 6 0RF Rx Instructions: Take two (2) tablets today, then one (1) tablet days #2 thru #5 benzonatate [benzonatate] 100 mg capsule 100 mg PO TIDP PRN (Reason: Cough) Qty: 30 0RF methylprednisolone 4 mg Tablets,Dose Pack 4 mg PO DIRECTED Qty: 21 0RF Referrals Follow up/Referrals: Provider,Referral, MD [Primary Care Provider] - See instructions Activity Restrictions/Add. Instructions Additional Instructions/Restrictions: Drink plenty of fluids. Take tylenol or ibuprofen for pain or fever. Take the medications as directed. Follow up with your regular doctor. GO TO THE ER FOR ANY WORSENING SYMPTOMS Clinical Impressions Clinical Impression: Acute bronchitis, Low back pain Stand Alone Forms Stand Alone Forms: Work/School Release Instructions Patient Instructions: DI for Acute Bronchitis Discharge ED Provider: Clint Ruano [facility] General Stated complaint: lower back pain, no accident,cough,lung pain Time Seen by Provider: 03/01/22 08:28 History of Present Illness Provider Complaint: He states that for the past 3 days he has had a productive cough with yellowish sputum, sinus drainage and low back pain when he coughs. Related Data Previous Rx's Medication Instructions Recorded azithromycin 250 mg tablet 250 mg PO UD DOSE PK #6 tabs 03/01/22 (Zithromax) benzonatate 100 mg capsule 100 mg PO TIDP PRN Cough #30 caps 03/01/22 methylprednisolone 4 mg tablets in 4 mg PO DIRECTED #21 tabs 03/01/22 a dose pack Allergies Allergy/AdvReac Type Severity Reaction Status Date / Time No Known Allergies Allergy Verified 03/01/22 08:48 [facility] Disclaimer: The information contained in this section may have been updated after the patient was seen, as this information can be updated by other users. Social History Smoking Status: Never smoker alcohol intake: never current occupational status: other Travel in the last 8 weeks: None ROS Obtained: Yes All systems reviewed & no additional complaints except as documented Constitutional Constitutional: Reports chills and Denies fever(s) Eyes Eyes: Denies eye discharge ENT Ears, Nose, Mouth, and Throat: Reports as per HPI Cardiovascular Cardiovascular: Denies chest pain Respiratory Respiratory: Denies chest congestion and Reports cough Gastrointestinal Gastrointestingal: Reports nausea; Denies abdominal pain, constipation, cramping, diarrhea or vomiting Musculoskeletal Musculoskeletal: Denies arthralgias Integumentary/Breasts Skin/Breast: Denies rash Neurologic Neurologic: Reports as per HPI and Denies paresthesias Physical Exam General General appearance: alert and in no apparent distress Head Head exam: atraumatic, normocephalic and normal inspection Eye Eye exam: Present normal appearance, PERRL and EOMI ENT ENT exam: Present normal exam, normal oropharynx, mucous membranes moist, TM's normal bilaterally and normal external ear exam Neck Neck exam: Present normal inspection, full ROM and trachea midline; Absent meningismus or lymphadenopathy Chest Chest inspection: Present normal inspection and symmetric chest wall rise; Absent tenderness Respiratory Respiratory exam: Present normal lung sounds bilaterally; Absent respiratory distress Cardiovascular Cardiovascular exam: Present regular rate and normal rhythm; Absent JVD Abdominal Exam Abdominal exam: Present soft and normal bowel sounds; Absent distention, tenderness or guarding Extremities Exam Extremities exam: Present normal inspection, full ROM and normal capillary refill; Absent calf tenderness Back Exam Back exam: Present normal inspection; Absent tenderness Neurological Exam Neurological exam: Present alert, oriented
[2022-03-01 08:40] VITALS: BP 132/84; PULSE 85; RESP 19; TEMP 36.8; O2SAT 97; BMI 38.0
[2022-03-01 09:39] VITALS: BP 132/84; PULSE 85; RESP 19; TEMP 36.8; O2SAT 97
== END 2022-03-01 09:39 | disposition home or self-care (01) ==
PROVIDERS: Emergency Provider Nurse Practitioner Family
DX: J20.9 Acute bronchitis, unspecified (principal); M54.50 Low back pain, unspecified
CPT/HCPCS: 99212; 99213; G0463

== ENCOUNTER 2022-03-10 16:42 | Emergency (ER) | payer MEDICAID, SELFPAY ==
--- NOTE | 2022-03-10 16:59 | EXP.UTC ---
Discharge Plan Disposition Patient Disposition: Home, Self-Care Condition: Good Prescriptions Prescriptions: New benzonatate [benzonatate] 100 mg capsule 100 mg PO TIDP PRN (Reason: Cough) Qty: 30 0RF amoxicillin-pot clavulanate 875-125 mg Tablet 1 tab PO Q12H Qty: 20 0RF methylprednisolone 4 mg Tablets,Dose Pack 4 mg PO DIRECTED Qty: 21 0RF Referrals Follow up/Referrals: Izabella Damon [Primary Care Provider] - See instructions Activity Restrictions/Add. Instructions Additional Instructions/Restrictions: Drink plenty of fluids. Take tylenol or ibuprofen for pain or fever. Take the medications as directed. Follow up with your regular doctor. GO TO THE ER FOR ANY WORSENING SYMPTOMS Clinical Impressions Clinical Impression: Pharyngitis Stand Alone Forms Stand Alone Forms: Work/School Release Instructions Patient Instructions: Strep Throat, DI for Strep Throat Discharge ED Provider: Clint Ruano [facility] [place] H[place] General Stated complaint: SORE THROAT AND COUGH Time Seen by Provider: 03/10/22 16:59 History of Present Illness Provider Complaint: He states that for the past 2 days he has had sore throat, chills, body aches and low grade fever. Related Data Previous Rx's Medication Instructions Recorded amoxicillin 875 mg-potassium 1 tab PO Q12H #20 tabs 03/10/22 clavulanate 125 mg tablet benzonatate 100 mg capsule 100 mg PO TIDP PRN Cough #30 caps 03/10/22 methylprednisolone 4 mg tablets in 4 mg PO DIRECTED #21 tabs 03/10/22 a dose pack Allergies Allergy/AdvReac Type Severity Reaction Status Date / Time No Known Allergies Allergy Verified 03/10/22 17:[address] [facility] Disclaimer: The information contained in this section may have been updated after the patient was seen, as this information can be updated by other users. Social History Smoking Status: Never smoker alcohol intake: never current occupational status: other Travel in the last 8 weeks: None ROS Obtained: Yes All systems reviewed & no additional complaints except as documented Constitutional Constitutional: Reports chills and Reports fever(s) Eyes Eyes: Denies eye discharge ENT Ears, Nose, Mouth, and Throat: Reports as per HPI Cardiovascular Cardiovascular: Denies chest pain Respiratory Respiratory: Denies chest congestion and Reports cough Gastrointestinal Gastrointestingal: Reports nausea; Denies abdominal pain, constipation, cramping, diarrhea or vomiting Musculoskeletal Musculoskeletal: Denies arthralgias Integumentary/Breasts Skin/Breast: Denies rash Neurologic Neurologic: Denies paresthesias Physical Exam General General appearance: alert and in no apparent distress Head Head exam: atraumatic, normocephalic and normal inspection Eye Eye exam: Present normal appearance, PERRL and EOMI ENT ENT exam: Present mucous membranes moist and normal external ear exam Expanded ENT Exam TM/Canal exam: Bilateral TM: erythema and bulging Nose exam: Absent sinus tenderness Mouth exam: Present normal external inspection; Absent drooling Teeth exam: Present normal inspection Throat exam: Present tonsillar erythema, tonsillomegaly and tonsillar exudate Neck Neck exam: Present normal inspection, full ROM and trachea midline; Absent tenderness, meningismus or lymphadenopathy Chest Chest inspection: Present normal inspection and symmetric chest wall rise; Absent tenderness Respiratory Respiratory exam: Present normal lung sounds bilaterally; Absent respiratory distress, wheezes or stridor Cardiovascular Cardiovascular exam: Present regular rate and normal rhythm; Absent systolic murmur or diastolic murmur Abdominal Exam Abdominal exam: Present soft and normal bowel sounds; Absent distention, tenderness, guarding, rebound or rigidity Extremities Exam Extremities exam: Present normal inspection and normal capillary refill; Absent calf tenderness Back
[2022-03-10 17:00] VITALS: BP 145/98; PULSE 92; RESP 20; TEMP 36.7; O2SAT 95; BMI 38.0
[2022-03-10 17:11] LABS: UTC Strep Screen (Rapid) Negative (Negative)
[2022-03-10 18:20] VITALS: BP 145/98; PULSE 92; RESP 20; TEMP 36.7; O2SAT 95
== END 2022-03-10 18:20 | disposition home or self-care (01) ==
PROVIDERS: Emergency Provider Nurse Practitioner Family; PCP Nurse Practitioner Family
DX: J02.9 Acute pharyngitis, unspecified (principal)
CPT/HCPCS: 87880; 99212; 99213; G0463

== ENCOUNTER 2022-04-16 16:54 | Emergency (ER) | payer MEDICAID, SELFPAY ==
[2022-04-16 17:00] VITALS: BP 133/86; PULSE 79; RESP 20; TEMP 36.8; O2SAT 96; BMI 39.3
--- NOTE | 2022-04-16 17:02 | EXP.UTC ---
Discharge Plan Disposition Patient Disposition: Home, Self-Care Condition: Good Prescriptions Prescriptions: New benzonatate [benzonatate] 100 mg capsule 100 mg PO TIDP PRN (Reason: Cough) Qty: 30 0RF methylprednisolone 4 mg Tablets,Dose Pack 4 mg PO DIRECTED Qty: 21 0RF promethazine-DM 6.25-15 mg/5 mL Syrup 5 ml PO Q6H PRN (Reason: Cough) Qty: 240 0RF cefdinir 300 mg capsule 300 mg PO BID Qty: 20 0RF Referrals Follow up/Referrals: Izabella Damon [Primary Care Provider] - See instructions Activity Restrictions/Add. Instructions Additional Instructions/Restrictions: Drink plenty of fluids. Take tylenol or ibuprofen for pain or fever. Take the medications as directed. Follow up with your regular doctor. GO TO THE ER FOR ANY WORSENING SYMPTOMS The cough medication (promethazine dm) will make you drowsy, so don't drive or operate heavy machinery after taking it. The tessalon perles (benzonatate) is for a cough and it should not make you drowsy. Clinical Impressions Clinical Impression: Acute bronchitis Instructions Patient Instructions: DI for Acute Bronchitis Discharge ED Provider: Clint Ruano [facility] General Stated complaint: SOA, cough Time Seen by Provider: 04/16/22 17:02 History of Present Illness Provider Complaint: He states that for the past 3 days he has had a productive cough with yellowish sputum, chest congestion, sinus congestion and a sore throat. Related Data Previous Rx's Medication Instructions Recorded benzonatate 100 mg capsule 100 mg PO TIDP PRN Cough #30 caps 04/16/22 cefdinir 300 mg capsule 300 mg PO BID #20 caps 04/16/22 methylprednisolone 4 mg tablets in 4 mg PO DIRECTED #21 tabs 04/16/22 a dose pack promethazine-DM 6.25 mg-15 mg/5 mL 5 ml PO Q6H PRN Cough #240 mL 04/16/22 oral syrup Allergies Allergy/AdvReac Type Severity Reaction Status Date / Time No Known Allergies Allergy Verified 04/16/22 17:09 [facility] Disclaimer: The information contained in this section may have been updated after the patient was seen, as this information can be updated by other users. Social History Smoking Status: Never smoker alcohol intake: never current occupational status: other Travel in the last 8 weeks: None ROS Obtained: Yes All systems reviewed & no additional complaints except as documented Constitutional Constitutional: Reports poor appetite Eyes Eyes: Reports system reviewed and no additional complaints, except as documented ENT Ears, Nose, Mouth, and Throat: Reports as per HPI Cardiovascular Cardiovascular: Reports system reviewed and no additional complaints, except as documented and Denies chest pain Respiratory Respiratory: Denies shortness of breath, Reports chest congestion, Reports cough, Denies stridor and Denies wheezing Gastrointestinal Gastrointestingal: Reports system reviewed and no additional complaints, except as documented; Denies abdominal pain, diarrhea or vomiting Musculoskeletal Musculoskeletal: Reports system reviewed and no additional complaints, except as documented and Denies arthralgias Integumentary/Breasts Skin/Breast: Reports system reviewed and no additional complaints, except as documented and Denies rash Neurologic Neurologic: Denies paresthesias Allergic/Immunologic Allergic/Immunologic: Denies wheezing Physical Exam General General appearance: alert and in no apparent distress Head Head exam: atraumatic, normocephalic and normal inspection Eye Eye exam: Present normal appearance, PERRL and EOMI ENT ENT exam: Present normal exam, normal oropharynx, mucous membranes moist, TM's normal bilaterally and normal external ear exam Neck Neck exam: Present normal inspection, full ROM and trachea midline; Absent meningismus or lymphadenopathy Chest Chest inspection: Present normal inspection and symmetric chest wall rise; Absent tendernes
[2022-04-16 17:57] VITALS: BP 133/86; PULSE 79; RESP 20; TEMP 36.8; O2SAT 96
== END 2022-04-16 17:57 | disposition home or self-care (01) ==
PROVIDERS: Emergency Provider Nurse Practitioner Family; PCP Nurse Practitioner Family
DX: J20.9 Acute bronchitis, unspecified (principal)
CPT/HCPCS: 99212; 99213; G0463

== ENCOUNTER → 2022-05-04 09:45 | Outpatient (CLI) | payer MEDICAID, SELFPAY ==
--- NOTE | 2022-05-04 09:49 | XR_ITS ---
FINAL REPORT CLINICAL HISTORY: BRONCHITIS, COUGH, SOA, PREVIOUS FX IN RIGHT SIDE OF RIBS 2021 COMPARISON: 10/07/2020 FINDINGS: Two views of the chest were obtained. The heart size and pulmonary vascularity are within normal limits. The mediastinum is normal. No acute pulmonary abnormality is identified. There is no pneumothorax. The bony thorax is intact. IMPRESSION: No active cardiopulmonary disease. Reviewed, Interpreted and Dictated by Jacek Banegas III, MD Transcribed by Elisabet Julien Authenticated and [facility]
== END ==
PROVIDERS: PCP Nurse Practitioner Family; Visit Provider Nurse Practitioner Family
DX: J20.9 Acute bronchitis, unspecified (principal)
CPT/HCPCS: 71046

== ENCOUNTER 2022-10-27 17:17 | Emergency (ER) | payer MEDICAID, SELFPAY ==
[2022-10-27 18:20] VITALS: BP 114/73; PULSE 73; RESP 16; TEMP 36.8; O2SAT 99; BMI 36.5
[2022-10-27 18:57] LABS: UTC Strep Screen (Rapid) Negative (Negative)
[2022-10-27 19:00] VITALS: BP 114/73; PULSE 73; RESP 16; TEMP 36.8; O2SAT 99
--- NOTE | 2022-10-27 19:26 | EXP.UTC ---
Discharge Plan Disposition Patient Disposition: Home, Self-Care Condition: Good Referrals Follow up/Referrals: Izabella Damon [Primary Care Provider] - See instructions Activity Restrictions/Add. Instructions Additional Instructions/Restrictions: *Monitor Temp, Over the counter Motrin or Tylenol as directed/as needed Tylenol every 4 hours and Motrin every 6 hours (as long as your family doctor has told you that you can take it) for fever or pain. and straight to ER if unable to lower temp less than 101.0 after medication given *Warm salt water gargles may help to soothe the throat *Throat Lozenges? *Warm fluids like tea with honey may help to soothe the throat? *Sleep elevated *Humidifier/Vaporizer Your throat swab was sent for culture. Those results are typically sent to your primary care. Be sure to follow up in 2-3 days with your family doctor/primary care physician if no improvement so they can review those result and treat if necessary. If you don?t have a primary care doctor, I recommend you get one but in the mean time, you will have to return to a walk in clinic Follow up IMMEDIATELY for new or worsening symptoms or no Noticeable improvement over the next 48-72 hours. 911 for difficulty breathing or swallowing Clinical Impressions Clinical Impression: Sore throat (viral) Instructions Patient Instructions: Sore Throat Discharge ED Provider: Anabel Geron[place] [facility] [place] General Stated complaint: sore throat Mode of Arrival: Ambulatory Source of Information: Patient Limitations: No Limitations Time Seen by Provider: 10/27/22 19:26 Description of Symptoms (Recalled from Triage Doc. by RN): PATIENT C/O SORE THROAT X 2 DAYS HEENT Symptoms (Recalled from RN notes): Yes Resp Symptoms (Recalled from RN notes): No Skin Symptoms (Recalled from RN notes): No MS Symptoms (Recalled from RN notes): No Functional Status (Recalled from RN notes): WNL History of Present Illness Provider Complaint: Patient state that he has been having sore throat for the last couple of days and has been around several people with strep throat worried that he may have it and wanted to get tested Related Data Allergies Allergy/AdvReac Type Severity Reaction Status Date / Time No Known Allergies Allergy Verified 04/16/22 17:09 Worker's Comp Is this a Worker's Comp case?: No [facility] Disclaimer: The information contained in this section may have been updated after the patient was seen, as this information can be updated by other users. Surgical History (Updated 10/27/22 @ 18:49 by Hortensia Jimenez RN) History of appendectomy History of eye surgery History of knee surgery Social History Smoking Status: Never smoker alcohol intake: never current occupational status: other Travel in the last 8 weeks: None ROS Obtained: Yes All systems reviewed & no additional complaints except as documented and Yes Systems reviewed as appropriate & no additional complaints except as documented ENT Ears, Nose, Mouth, and Throat: Reports system reviewed and no additional complaints, except as documented, Reports as per HPI and Reports sore throat Cardiovascular Cardiovascular: Reports system reviewed and no additional complaints, except as documented and Reports as per HPI Respiratory Respiratory: Reports system reviewed and no additional complaints, except as documented and Reports as per HPI Gastrointestinal Gastrointestingal: Reports system reviewed and no additional complaints, except as documented and as per HPI Physical Exam General General appearance: alert and in no apparent distress Expanded ENT Exam Nose exam: Absent sinus tenderness Throat exam: Present tonsillar erythema Respiratory Respiratory exam: Present normal lung sounds bilaterally; Absent respiratory distress or wheezes Cardiovascular Cardiovascular exam: Present regular rate
== END 2022-10-27 19:37 | disposition home or self-care (01) ==
PROVIDERS: Emergency Provider Nurse Practitioner; PCP Nurse Practitioner Family
DX: J02.9 Acute pharyngitis, unspecified (principal); B34.9 Viral infection, unspecified
CPT/HCPCS: 87880; 99212; 99213; G0463

== ENCOUNTER 2023-01-14 19:03 | Emergency (ER) | payer MEDICAID, SELFPAY ==
[2023-01-14 19:03] VITALS: BP 149/107; PULSE 89; RESP 16; TEMP 36.9; O2SAT 99; BMI 38.0
--- NOTE | 2023-01-14 19:18 | XR_ITS ---
PROCEDURE INFORMATION: Exam: XR Chest Exam date and time: 01/14/2023 7:21 PM Age: 32 years old Clinical indication: Pain; Chest pressure; Additional info: Chest pain TECHNIQUE: Imaging protocol: Radiologic exam of the chest. Views: 1 view. COMPARISON: CR XR CHEST 2V 05/04/2022 9:50 AM FINDINGS: Lungs: Unremarkable. No consolidation. Pleural spaces: Unremarkable. No pleural effusion. No pneumothorax. Heart/Mediastinum: Unremarkable. No cardiomegaly. Bones/joints: Unremarkable. IMPRESSION: No acute findings.
[2023-01-14 19:26] LABS: Basophils # 0.1 K/mm3 (0-0.2); Basophils % 0.9 % (0.1-2.0); Eosinophils # 0.2 K/mm3 (0.0-0.4); Eosinophils % 2.5 % (0.1-12.0); Hematocrit 49.3 % (42.0-52.0); Hemoglobin 16.2 g/dL (14.1-18.0); Lymphocytes # 2.3 K/mm3 (0.7-4.5); Lymphocytes % 31.3 % (10-50); Mean Corpuscular HGB Conc 32.8 g/dL (31.8-35.4); Mean Corpuscular Volume 88.4 fl (80-94); Mean Platelet Volume 8.9 fl (7.4-10.4); Monocytes # 0.4 K/mm3 (0.1-1.0); Monocytes % 5.2 % (1.7-9.3); Neutrophils # 4.5 K/mm3 (1.8-7.8); Neutrophils % 60.1 % (37.0-80.0); Platelet Count 270 K/mm3 (142-424); Red Blood Count 5.58 M/mm3 (4.60-6.20); Red Cell Distribution Width 13.1 % (11.5-17.5); White Blood Count 7.4 K/mm3 (4.8-10.8)
[2023-01-14 19:29] LABS: Chloride 104 mmol/L (98-107); Potassium 4.2 mmoL/L (3.5-5.1); Sodium 141 mmol/L (136-145)
[2023-01-14 19:31] LABS: Alanine Aminotransferase 40 U/L (12-78); Aspartate Amino Transferase 35 U/L (17-59); Blood Urea Nitrogen 17 mg/dl (9-20); Creatinine Clearance Estimated 210 mL/min (50-200); Estimated Glomerular Filt Rate 97 ml/min (>60); GFR (African American) 118 ML/MIN (>60)
[2023-01-14 19:32] LABS: Albumin Level 4.7 g/dl (3.5-5.0); Albumin/Globulin Ratio 1.5 (1.1-1.8); Alkaline Phosphatase 71 U/L (38-126); Anion Gap 10.2 mEq/L (5-15); Bilirubin,Total 0.5 mg/dl (0.2-1.3); Calcium 8.9 mg/dl (8.4-10.2); Carbon Dioxide 31 mmol/L (22.0-30.0); Globulin 3.1 g/dL (1.3-3.2); Glucose 88 mg/dl (74-100); Total Protein,Serum 7.8 g/dl (6.3-8.2)
[2023-01-14 19:48] LABS: Troponin I < 0.01 ng/ml (0.00-0.034)
--- NOTE | 2023-01-14 20:08 | HMH.EDCP ---
Discharge Plan Disposition Patient Disposition: Home, Self-Care Prescriptions Prescriptions: New ibuprofen 800 mg tablet 800 mg PO TID PRN (Reason: pain) 7 Days Qty: 20 0RF cyclobenzaprine 5 mg tablet 5 mg PO TID PRN (Reason: muscle spasm) 5 Days Qty: 15 0RF Referrals Follow up/Referrals: Izabella Damon [Primary Care Provider] - See instructions Activity Restrictions/Add. Instructions Additional Instructions/Restrictions: There is no evidence of any cardiopulmonary emergent medical condition today. Your symptoms are consistent with a musculoskeletal chest wall contusion from your fall several weeks ago exacerbated by ongoing musculoskeletal movements and strain of the chest wall muscles themselves. I recommend that you rest at least for several days take ibuprofen as prescribed and the muscle laxer as prescribed and apply ice and return to activity as tolerated. Clinical Impressions Clinical Impression: Chest wall contusion, Strain of chest wall Discharge ED Provider: Mee Murdock HPI General Chief Complaint: Chest Pain Stated Complaint: chest pain Time Seen by Provider: 01/14/23 19:59 Mode of Arrival: Ambulatory Source of Information: Patient Limitations: No Limitations Description of Symptoms (Recalled from ER Triage Doc. by RN): Presents to ED with c/o of chest pain that radiates into his right side that started 1 week ago. Denies cardiac hx/fever/meds [employer]. Patient's right side is tender upon palpation. Patient further reports cough x3-4 days. History of Present Illness HPI narrative: Patient is a 32-year-old male presents today with right lateral chest wall discomfort. States he fell off of a ladder several weeks ago and has had significant pain since that time. 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 Denies any shortness of breath but has had a very mild cough over the last several days. No exertional symptoms no diaphoresis or nausea associated with his symptoms today.. Related Data Previous Rx's Medication Instructions Recorded cyclobenzaprine 5 mg tablet 5 mg PO TID PRN muscle spasm 5 01/14/23 days #15 tabs ibuprofen 800 mg tablet 800 mg PO TID PRN pain 7 days #20 01/14/23 tabs Allergies Allergy/AdvReac Type Severity Reaction Status Date / Time No Known Allergies Allergy Verified 04/16/22 17:09 [facility] Disclaimer: The information contained in this section may have been updated after the patient was seen, as this information can be updated by other users. Surgical History (Updated 10/27/22 @ 18:49 by Hortensia Jimenez RN) History of appendectomy History of eye surgery History of knee surgery Social History Smoking Status: Never smoker alcohol intake: never current occupational status: other Travel in the last 8 weeks: None ROS Obtained: Yes All systems reviewed & no additional complaints except as documented Physical Exam General General appearance: alert Chest Chest inspection: Present tenderness (Right lateral chest wall tenderness to palpation there is no deformity ecchymosis rash etc.) Respiratory Respiratory exam: Present normal lung sounds bilaterally; Absent respiratory distress, wheezes, stridor or accessory muscle use Cardiovascular Cardiovascular exam: Present regular rate and tachycardia Neurological Exam Neurological exam: Present alert and oriented X3 HEART Score HEART Score HEART Score assessment performed?: Yes History (anamnesis): Slightly suspicious ECG: Non-specific disturbance Age: <45 years Risk factors: No known risk factors Troponin: </= normal limit HEART Score: 1 Critical Care Critical Care Time Critical Care Time: No Medical Decision Making Gregory Inquiry Pt receiving controlled substance: No Vital Signs Vital Signs: 01/14/23 19:03 Temperat
[2023-01-14 20:19] VITALS: BP 134/91; PULSE 90; RESP 16; TEMP 36.9; O2SAT 98
--- NOTE | 2023-01-15 19:03 | ECG_ITS ---
APPROVED REPORT Exam: Resting ECG HR:87 bpm ECG Measurements Heart Rate 87 AXES DC 167 P 31 QRSd 111 QRS 34 QT 340 T 8 QTc 384 Conclusion SINUS RHYTHM Old isolated Q-wave in lead III, normal variant Normal ECG UNCONFIRMED REPORT Electronically signed by : Blade Kelley MD 01/17/2023 08:27:53
== END 2023-01-14 20:22 | disposition home or self-care (01) ==
LOC: ER 20:15
PROVIDERS: Emergency Provider Student in an Organized Health Care Education/Training Program; PCP Nurse Practitioner Family
DX: R07.1 Chest pain on breathing (principal); S20.219A Contusion of unspecified front wall of thorax, initial encounter; S29.011A Strain of muscle and tendon of front wall of thorax, initial encounter; R05.9 Cough, unspecified; W11.XXXA Fall on and from ladder, initial encounter
CPT/HCPCS: 71045; 80053; 84484; 85025; 93005; 96374; 99284

== ENCOUNTER 2023-04-10 10:47 | Emergency (ER) | payer MEDICAID, SELFPAY ==
[2023-04-10 11:10] VITALS: BP 134/78; PULSE 82; RESP 18; TEMP 37.2; O2SAT 97; BMI 35.6
--- NOTE | 2023-04-10 11:33 | EXP.UTC ---
Discharge Plan Disposition Patient Disposition: Home, Self-Care Condition: Good Referrals Follow up/Referrals: Izabella Damon [Primary Care Provider] - See instructions Activity Restrictions/Add. Instructions Additional Instructions/Restrictions: *Monitor Temp, Over the counter Motrin or Tylenol as directed/as needed Tylenol every 4 hours and Motrin every 6 hours (as long as your family doctor has told you that you can take it) for fever or pain. and straight to ER if unable to lower temp less than 101.0 after medication given *Warm salt water gargles may help to soothe the throat *Throat Lozenges? *Warm fluids like tea with honey may help to soothe the throat? *Sleep elevated *Humidifier/Vaporizer Your throat swab was sent for culture. Those results are typically sent to your primary care. Be sure to follow up in 2-3 days with your family doctor/primary care physician if no improvement so they can review those result and treat if necessary. If you don?t have a primary care doctor, I recommend you get one but in the mean time, you will have to return to a walk in clinic Follow up IMMEDIATELY for new or worsening symptoms or no Noticeable improvement over the next 48-72 hours. 911 for difficulty breathing or swallowing Clinical Impressions Clinical Impression: Viral syndrome Instructions Patient Instructions: Sore Throat Discharge ED Provider: Anabel Geronimo [facility] [place] General Stated complaint: cough, congestion Mode of Arrival: Ambulatory Source of Information: Patient Limitations: No Limitations Time Seen by Provider: 04/10/23 11:33 Description of Symptoms (Recalled from Triage Doc. by RN): Pt's symptoms are cough, fatigue, and sore throat. Was exposed to strep. HEENT Symptoms (Recalled from RN notes): Yes Resp Symptoms (Recalled from RN notes): No Skin Symptoms (Recalled from RN notes): No MS Symptoms (Recalled from RN notes): No Functional Status (Recalled from RN notes): n/a History of Present Illness Provider Complaint: Patient states that he was recently around someone with strep throat and now he is having sore throat, cough, headache and fatigue so today he came in to get tested Related Data Allergies Allergy/AdvReac Type Severity Reaction Status Date / Time No Known Allergies Allergy Verified 04/10/23 11:31 Worker's Comp Is this a Worker's Comp case?: No [facility] Disclaimer: The information contained in this section may have been updated after the patient was seen, as this information can be updated by other users. Surgical History History of appendectomy History of eye surgery History of knee surgery Social History Smoking Status: Never smoker alcohol intake: never current occupational status: other Travel in the last 8 weeks: None ROS Obtained: Yes All systems reviewed & no additional complaints except as documented and Yes Systems reviewed as appropriate & no additional complaints except as documented Constitutional Constitutional: Reports system reviewed and no additional complaints, except as documented, Reports as per HPI and Reports headache(s) ENT Ears, Nose, Mouth, and Throat: Reports system reviewed and no additional complaints, except as documented, Reports as per HPI, Reports headache(s) and Reports sore throat Cardiovascular Cardiovascular: Reports system reviewed and no additional complaints, except as documented and Reports as per HPI Respiratory Respiratory: Reports system reviewed and no additional complaints, except as documented, Reports as per HPI and Reports cough Gastrointestinal Gastrointestingal: Reports system reviewed and no additional complaints, except as documented and as per HPI Neurologic Neurologic: Reports headache(s) Physical Exam General General appearance: alert and in no apparent distress ENT ENT exam: Present mucous membranes moist Expanded ENT Exam Throat exam: Present tonsillar erythema Respiratory Respiratory exam: Present normal lung sounds bilaterally; Absent respiratory distress or wheezes Cardiovascular Cardiovascular exam: Present regular rate, normal rhythm and normal heart sounds Abdominal Exam Abdominal exam: Present soft and normal bowel sounds; Absent distention or tenderness Neurological Exam Neurological exam: Present alert, oriented X3 and normal gait Medical Decision Making Gregory Inquiry Pt receiving controlled substance: No Gregory was queried for this patient: No Vital Signs: 04/10/23 11:10 Temperature 98.9 F Temperature Source Oral Pulse Rate [Right Radial] 82 Respiratory Rate 18 Blood Pressure [Right Arm] 134/78 Blood Pressure Mean [Right Arm] 96 Blood Pressure Source [Right Arm] Automatic Cuff Blood Pressure Position [Right Arm] Sitting 02 Sat by Pulse Oximetry 97 Oxygen Delivery Method Room Air Lab Data Lab results reviewed: Yes I reviewed the patient's lab results.
[2023-04-10 11:44] LABS: UTC Strep Screen (Rapid) Negative (Negative)
[2023-04-10 11:57] VITALS: BP 134/78; PULSE 82; RESP 18; TEMP 37.2; O2SAT 97
== END 2023-04-10 11:57 | disposition home or self-care (01) ==
PROVIDERS: Emergency Provider Nurse Practitioner; PCP Nurse Practitioner Family
DX: R51.9 Headache, unspecified (principal); R05.9 Cough, unspecified; R09.81 Nasal congestion; R07.0 Pain in throat; B34.9 Viral infection, unspecified
CPT/HCPCS: 87880; 99212; 99213; G0463

== ENCOUNTER 2023-05-16 16:46 | Emergency (ER) | payer MEDICAID, SELFPAY ==
[2023-05-16 18:05] VITALS: BP 141/93; PULSE 80; RESP 21; TEMP 36.8; O2SAT 98; BMI 38.6
--- NOTE | 2023-05-16 18:34 | ED_ITS ---
Discharge Plan Disposition Patient Disposition: Home, Self-Care Condition: Good Prescriptions Prescriptions: New azithromycin [Zithromax Z-Ra] 250 mg tablet See Rx Instructions .ROUTE .COMPLEX 5 Days Qty: 6 0RF Rx Instructions: For 250 mg dose pack: take 500 mg today (day 1), then 250 mg for 4 days (days 2-5) benzonatate 100 mg capsule 100 mg PO TID PRN (Reason: cough) Qty: 30 0RF methylprednisolone [Medrol (Ra)] 4 mg tablets,dose pack See Rx Instructions .Route .COMPLEX 6 Days Qty: 21 0RF Rx Instructions: taper pack; albuterol sulfate [Proventil HFA] 90 mcg/actuation HFA aerosol inhaler 1 - 2 puff inhalation Q6H PRN (Reason: shortness of breath or wheezing) Qty: 8.5 0RF Referrals Follow up/Referrals: Izabella Damon [Primary Care Provider] - See instructions Activity Restrictions/Add. Instructions Additional Instructions/Restrictions: * Start antibiotic today. Be sure to complete entire prescription even if feeling better * Monitor temp. Tylenol every 4 hours as needed and / or ibuprofen every 6 hours as needed ( As long as your primary care physician has told you that it ok to take both. For fever/aches/pains ER if no less than 101 despite Tylenol or Motrin * Humidifier/vaporizer or hot steamy shower * Inhaler every 4-6 hours as needed like we discussed. If unsure how to use it, ask pharmacist to demonstrate how. Should help open airways and improve cough, wheezing, and shortness of breath *Tessalon Perles will not cause drowsiness but use at bedtime to help stop cough so that you may get some rest. *Start steroid today. Helps with inflammation therefore, cough and wheezing. Follow directions on the package. Reviewed side effects. Patient reports taking them before. Follow up IMMEDIATELY for new or worsening of symptoms OR no noticeable improvement over the next 48-72 hours. 911 immediately for any life threatening symptoms such as chest pain or difficulty breathing Clinical Impressions Clinical Impression: Sinusitis, Acute bronchitis Instructions Patient Instructions: DI for Sinusitis, Acute Bronchitis Discharge ED Provider: Anabel Geronimo [facility] [place] H[place] General Stated complaint: Cough,Congestion,SOA Mode of Arrival: Ambulatory Source of Information: Patient Limitations: No Limitations Time Seen by Provider: 05/16/23 18:34 Description of Symptoms (Recalled from Triage Doc. by RN): PATIENT C/O SOA AND COUGH X 2 WEEKS HEENT Symptoms (Recalled from RN notes): No Resp Symptoms (Recalled from RN notes): Yes Skin Symptoms (Recalled from RN notes): No MS Symptoms (Recalled from RN notes): No Functional Status (Recalled from RN notes): WNL History of Present Illness Provider Complaint: Patient states that for about 2 weeks he has been having sinus congestion and pressure, cough and drainage in the back of his throat and feeling SOA at times States he has a hx of asthma and when he gets sinus infections it causes it to flare up Related Data Previous Rx's Medication Instructions Recorded albuterol sulfate 90 mcg/actuation 1 - 2 puff inhalation Q6H PRN 05/16/23 aerosol inhaler (Proventil HFA) shortness of breath or wheezing #8.5 grams azithromycin 250 mg tablet See Rx Instructions PO .COMPLEX 5 05/16/23 (Zithromax Z-Ra) days #6 tabs benzonatate 100 mg capsule 100 mg PO TID PRN cough #30 caps 05/16/23 methylprednisolone 4 mg tablets in See Rx Instructions .Route 05/16/23 a dose pack (Medrol (Ra)) .COMPLEX 6 days #21 tabs Allergies Allergy/AdvReac Type Severity Reaction Status Date / Time No Known Allergies Allergy Verified 04/10/23 11:31 Worker's Comp Is this a Worker's Comp case?: No [facility] Disclaimer: The information contained in this section may have been updated after the patient was seen, as this information can be updated by other users. Surgical History History of eye surgery History of knee surgery History of appendectomy Social History Smoking Status: Never smoker alcohol intake: never current occupational status: other Travel in the last 8 weeks: None ROS Obtained: Yes All systems reviewed & no additional complaints except as documented and Yes Systems reviewed as appropriate & no additional complaints except as documented Constitutional Constitutional: Reports system reviewed and no additional complaints, except as documented, Reports as per HPI and Reports headache(s) ENT Ears, Nose, Mouth, and Throat: Reports system reviewed and no additional complaints, except as documented, Reports as per HPI, Reports headache(s), Reports sinus pain and Reports sinus pressure Cardiovascular Cardiovascular: Reports system reviewed and no additional complaints, except as documented and Reports as per HPI Respiratory Respiratory: Reports system reviewed and no additional complaints, except as documented, Reports as per HPI, Reports chest congestion and Reports cough Gastrointestinal Gastrointestingal: Reports system reviewed and no additional complaints, except as documented and as per HPI Neurologic Neurologic: Reports headache(s) Physical Exam General General appearance: alert and in no apparent distress ENT ENT exam: Present mucous membranes moist Expanded ENT Exam Nose exam: Present sinus tenderness Throat exam: Present other (PND noted) Respiratory Respiratory exam: Present normal lung sounds bilaterally; Absent respiratory distress or wheezes Cardiovascular Cardiovascular exam: Present regular rate, normal rhythm and normal heart sounds Neurological Exam Neurological exam: Present alert, oriented X3 and normal gait Medical Decision Making Gregory Inquiry Pt receiving controlled substance: No Gregory was queried for this patient: No Vital Signs: 05/16/23 18:05 Temperature 98.3 F Temperature Source Oral Pulse Rate [Right Brachial] 80 Respiratory Rate 21 Blood Pressure [Right Arm] 141/93 H Blood Pressure Mean [Right Arm] 109 Blood Pressure Source [Right Arm] Automatic Cuff Blood Pressure Position [Right Arm] Sitting 02 Sat by Pulse Oximetry 98 Oxygen Delivery Method Room Air
[2023-05-16 18:35] VITALS: BP 141/93; PULSE 80; RESP 21; TEMP 36.8; O2SAT 98
== END 2023-05-16 18:47 | disposition home or self-care (01) ==
PROVIDERS: Emergency Provider Nurse Practitioner; PCP Nurse Practitioner Family
DX: J20.9 Acute bronchitis, unspecified (principal); J01.90 Acute sinusitis, unspecified; R05.9 Cough, unspecified; R09.81 Nasal congestion; R09.82 Postnasal drip; R06.02 Shortness of breath; R51.9 Headache, unspecified
CPT/HCPCS: 99212; 99214; G0463

== ENCOUNTER 2023-11-07 08:30 | Emergency (ER) | payer MEDICAID, SELFPAY ==
[2023-11-07 08:35] VITALS: BP 160/98; PULSE 90; RESP 18; TEMP 36.9; O2SAT 97; BMI 39.3
[2023-11-07 08:51] LABS: UTC Strep Screen (Rapid) Negative (Negative)
--- NOTE | 2023-11-07 09:18 | ED_ITS ---
Discharge Plan Disposition Patient Disposition: Home, Self-Care Condition: Good Prescriptions Prescriptions: New amoxicillin 875 mg tablet 875 mg PO Q12H Qty: 20 0RF methylprednisolone 4 mg Tablets,Dose Pack 4 mg PO DIRECTED 6 Days Qty: 21 0RF Rx Instructions: Take 1 pack as directed for 6 days ezombpbkqibfgpe-[id number]-YD [Bromfed DM] 2-30-10 mg/5 mL Syrup 5 ml PO Q6H PRN (Reason: Cough) Qty: 240 0RF Referrals Follow up/Referrals: Izabella Damon [Primary Care Provider] - See instructions Activity Restrictions/Add. Instructions Additional Instructions/Restrictions: Drink plenty of fluids. Take tylenol or ibuprofen for pain or fever. Take the medications as directed. Follow up with your regular doctor. GO TO THE ER FOR ANY WORSENING SYMPTOMS I recommend for you to have a covid-19 test. Clinical Impressions Clinical Impression: Pharyngitis, Viral syndrome Stand Alone Forms Stand Alone Forms: Work/School Release Instructions Patient Instructions: Sore Throat, DI for Pharyngitis/Tonsillopharyngitis -- Adult Print Language Print Language: Pashto Discharge ED Provider: Clint Ruano [facility] General Stated complaint: sore throat Mode of Arrival: Ambulatory Source of Information: Patient Limitations: No Limitations Time Seen by Provider: 11/07/23 09:08 Description of Symptoms (Recalled from Triage Doc. by RN): PATIENT C/O SORE THRO AT X 2 DAYS HEENT Symptoms (Recalled from RN notes): Yes Resp Symptoms (Recalled from RN notes): No Skin Symptoms (Recalled from RN notes): No MS Symptoms (Recalled from RN notes): No Functional Status (Recalled from RN notes): WNL Related Data Previous Rx's ?Medication ?Instructions ?Recorded amoxicillin 875 mg tablet 875 mg PO Q12H #20 tabs 11/07/23 lrpyjjskesbkaaj-atquqlhsnnchuas-LE 5 ml PO Q6H PRN Cough #240 mL 11/07/23 2 mg-30 mg-10 mg/5 mL oral syrup (Bromfed DM) methylprednisolone 4 mg tablets in 4 mg PO DIRECTED 6 days #21 tabs 11/07/23 a dose pack Allergies Allergy/AdvReac Type Severity Reaction Status Date / Time No Known Allergies Allergy Verified 04/10/23 11:31 Worker's Comp Is this a Worker's Comp case?: No [facility] Disclaimer: The information contained in this section may have been updated after the patien jenaro was seen, as this information can be updated by other users. Surgical History History of eye surgery History of knee surgery History of appendectomy Social History Smoking Status: Never smoker alcohol intake: never current occupational status: other Travel in the last 8 weeks: None ROS Obtained: Yes All systems reviewed & no additional complaints except as documented Constitutional Constitutional: Reports chills and Reports fever(s) Eyes Eyes: Denies eye discharge ENT Ears, Nose, Mouth, and Throat: Reports as per HPI Cardiovascular Cardiovascular: Denies chest pain Respiratory Respiratory: Denies chest congestion and Reports cough Gastrointestinal Gastrointestingal: Reports nausea; Denies abdominal pain, constipation, cramping, diarrhea or vomiting Musculoskeletal Musculoskeletal: Denies arthralgias Integumentary/Breasts Skin/Breast: Denies rash Neurologic Neurologic: Denies paresthesias Physical Exam General General appearance: alert and in no apparent distress Head Head exam: atraumatic, normocephalic and normal inspection Eye Eye exam: Present normal appearance, PERRL and EOMI ENT ENT exam: Present mucous membranes moist and normal external ear exam Expanded ENT Exam TM/Canal exam: Bilateral TM: erythema and bulging Nose exam: Absent sinus tenderness Mouth exam: Present normal external inspection; Absent drooling Teeth exam: Present normal inspection Throat exam: Present tonsillar erythema, tonsillomegaly and tonsillar exudate Neck Neck exam: Present normal inspection, full ROM and trachea midline; Absent tenderness, meningismus or lymphadenopathy Chest Chest inspection: Present normal inspection and symmetric chest wall rise; Absent tenderness Respiratory Respiratory exam: Present normal lung sounds bilaterally; Absent respiratory distress, wheezes, stridor or accessory muscle use Cardiovascular Cardiovascular exam: Present regular rate and normal rhythm; Absent systolic murmur or diastolic murmur Abdominal Exam Abdominal exam: Present soft and normal bowel sounds; Absent distention, tenderness, guarding, rebound or rigidity Extremities Exam Extremities exam: Present normal inspection and normal capillary refill; Absent calf tenderness Back Exam Back exam: Present normal inspection and full ROM; Absent tenderness, CVA tenderness (R) or CVA tenderness (L) Neurological Exam Neurological exam: Present alert, oriented X3 and CN II-XII intact Psychiatric Psychiatric exam: Present normal affect and normal mood Skin Skin exam: Present warm, dry, intact and normal color Medical Decision Making Medical Records Medical records reviewed: No I reviewed the patient's medical records. Gregory Inquiry Pt receiving controlled substance: No Vital Signs: 11/07/23 08:35 Temperature 98.4 F Temperature Source Oral Pulse Rate [Left Brachial] 90 Respiratory Rate 18 Blood Pressure [Left Arm] 160/98 H Blood Pressure Mean [Left Arm] 118 Blood Pressure Source [Left Arm] Automatic Cuff Blood Pressure Position [Left Arm] Sitting 02 Sat by Pulse Oximetry 97 Oxygen Delivery Method Room Air Lab Data Lab Results 11/07/23 08:48: Strep Scn Rapid Clinic Negative Orders (Tests/Meds): ORDERS Category Date Time Status Strep Screen Confirmation Stat Micro 11/07/23 08:48 Received
[2023-11-07 09:50] VITALS: BP 160/98; PULSE 90; RESP 18; TEMP 36.9; O2SAT 97
== END 2023-11-07 09:52 | disposition home or self-care (01) ==
PROVIDERS: Emergency Provider Nurse Practitioner Family; PCP Nurse Practitioner Family
DX: J02.9 Acute pharyngitis, unspecified (principal); R50.9 Fever, unspecified; B34.9 Viral infection, unspecified
CPT/HCPCS: 87880; 99212; 99214; G0463

== ENCOUNTER 2024-01-14 13:06 | Emergency (ER) | payer MEDICAID, SELFPAY ==
[2024-01-14 13:25] VITALS: BP 141/98; PULSE 101; RESP 21; TEMP 37; O2SAT 99; BMI 37.7
[2024-01-14 13:47] LABS: UTC Strep Screen (Rapid) Negative (Negative)
--- NOTE | 2024-01-14 13:53 | ED_ITS ---
Discharge Plan Prescriptions Prescriptions: New azithromycin 250 mg tablet 250 mg PO DIRECTED Qty: 6 0RF Rx Instructions: Take two (2) tablets on day #1, then one (1) tablet day #2 thru #5 Referrals Follow up/Referrals: Izabella Damon [Primary Care Provider] - See instructions Activity Restrictions/Add. Instructions Additional Instructions/Restrictions: Start antibiotic as soon as possible and be sure to take as ordered for full length of time even though he should start feeling better in 24-48 hours. Tylenol or Motrin as needed for pain or fever Encourage fluids, water, Gatorade, Powerade, Pedialyte if infant/toddler/child Warm compresses often helps when placed over ear Return immediately for new or worsening symptoms no noticeable improvement in 48-72 hours and in 10-14 days to ensure the ears are return to baseline. Follow-up with primary care Clinical Impressions Clinical Impression: Otitis media, Strep sore throat Instructions Patient Instructions: Middle Ear Infection, DI for Strep Throat Print Language Print Language: Romansh Discharge ED Provider: Yu ([facility])Josie [facility] HPI General Stated complaint: sore throat, left ear pain Mode of Arrival: Ambulatory Source of Information: Patient Limitations: No Limitations Time Seen by Provider: 01/14/24 13:52 Description of Symptoms (Recalled from Triage Doc. by RN): PATIENT C/O SORE THROAT AND LEFT EAR PAIN SINCE YESTERDAY HEENT Symptoms (Recalled from RN notes): Yes Resp Symptoms (Recalled from RN notes): No Skin Symptoms (Recalled from RN notes): No MS Symptoms (Recalled from RN notes): No Functional Status (Recalled from RN notes): WNL History of Present Illness Provider Complaint: 33-year-old male presents for sore throat and left ear pain. Patient states last week his daughter was diagnosed with strep. Related Data Previous Rx's ?Medication ?Instructions ?Recorded azithromycin 250 mg tablet 250 mg PO DIRECTED #6 tabs 01/14/24 Allergies Allergy/AdvReac Type Severity Reaction Status Date / Time No Known Allergies Allergy Verified 04/10/23 11:31 Worker's Comp Is this a Worker's Comp case?: No [facility] Disclaimer: The information contained in this section may have been updated after the patient was seen, as this information can be updated by other users. Surgical History (Reviewed 01/14/24 @ 13:58 by Josie Nicholas ([facility]), [employer]) History of eye surgery History of knee surgery History of appendectomy Social History (Reviewed 01/14/24 @ 13:58 by Josie Nicholas ([facility]), [employer]) Smoking Status: Never smoker alcohol intake: never current occupational status: other ROS Obtained: Yes Systems reviewed as appropriate & no additional complaints except as documented Physical Exam General General appearance: alert and in no apparent distress Eye Eye exam: Present normal appearance and PERRL ENT ENT exam: Present mucous membranes moist Expanded ENT Exam TM/Canal exam: Left TM: erythema and loss of landmarks Throat exam: Present tonsillar erythema, tonsillomegaly and tonsillar exudate Respiratory Respiratory exam: Present normal lung sounds bilaterally Cardiovascular Cardiovascular exam: Present regular rate and normal rhythm Neurological Exam Neurological exam: Present alert and oriented X3 Medical Decision Making Medical Records Screening: Per USPSTF and CDC recommendations, given the prevalence of disease in our region, it is our hospital?s policy to screen for HIV and viral Hepatitis for all patients aged 18 and over and those with ongoing risk factors. Gregory Inquiry Pt receiving controlled substance: No Vital Signs: 01/14/24 13:25 Temperature 98.6 F Temperature Source Oral Pulse Rate [Left Brachial] 101 H Respiratory Rate 21 Blood Pressure [Left Arm] 141/98 H Blood Pressure Mean [Left Arm] 112 Blood Pressure Source [Left Arm] Automatic Cuff Blood Pressure Position [Left Arm] Sitting 02 Sat by Pulse Oximetry 99 Oxygen Delivery Method Room Air Lab Data Lab Results 01/14/24 13:18: Strep Scn Rapid Clinic Negative Orders (Tests/Meds): ORDERS Category Date Time Status Strep Screen Confirmation Stat Micro 01/14/24 13:18 Received
[2024-01-14 14:00] VITALS: BP 141/98; PULSE 101; RESP 21; TEMP 37; O2SAT 99
== END 2024-01-14 14:03 | disposition home or self-care (01) ==
LOC: UTC 13:07
PROVIDERS: Emergency Provider Nurse Practitioner Family; PCP Nurse Practitioner Family
DX: H66.93 Otitis media, unspecified, bilateral (principal); J02.9 Acute pharyngitis, unspecified
CPT/HCPCS: 87880; 99213; G0381

== ENCOUNTER 2024-03-06 12:24 | Emergency (ER) | payer MEDICAID, SELFPAY ==
--- NOTE | 2024-03-06 12:28 | XR_ITS ---
FINAL REPORT CLINICAL HISTORY: fall COMPARISON: None FINDINGS: LEFT ANKLE: Three views demonstrate a nondisplaced fracture of the posterior malleolus. There is a punctate calcific density along the tip of the lateral malleolus that appears chronic. The ankle mortise appears intact. IMPRESSION: Nondisplaced fracture of the posterior malleolus. Reviewed, Interpreted and Dictated by Francis Spann MD Transcribed by Karen Kebede Authenticated and [facility]
[2024-03-06 12:50] VITALS: BP 141/98; PULSE 84; RESP 18; TEMP 36.6; O2SAT 97; BMI 39.3
--- NOTE | 2024-03-06 13:11 | ED_ITS ---
Discharge Plan Disposition Patient Disposition: Home, Self-Care Prescriptions Prescriptions: No Action No Known Home Medications Referrals Follow up/Referrals: Kyle Banegas DO [Staff Physician] - See instructions Izabella Damon [Primary Care Provider] - See instructions Activity Restrictions/Add. Instructions Additional Instructions/Restrictions: Follow-up with orthopedics regarding this visit to the emergency department. Information here. Walking boot at all times until following up. You may take it off at night, but do not bear weight without having walking boot in place. Clinical Impressions Clinical Impression: Closed fracture of posterior malleolus Print Language Print Language: Yakut Discharge ED Provider: Edward Hancock [facility] HPI General Chief complaint: Extremity Injury, Lower Stated complaint: [id number], LT ankle pain Mode of Arrival: Ambulatory Source of Information: Patient Limitations: No Limitations Time Seen by Provider: 03/06/24 13:12 Description of Symptoms (Recalled from Triage Doc. by RN): PATIENT C/O INJURY TO LEFT ANKLE AFTER SLIPPING ON ICE AND FALLING YESTERDAY HEENT Symptoms (Recalled from RN notes): No Resp Symptoms (Recalled from RN notes): No Skin Symptoms (Recalled from RN notes): No MS Symptoms (Recalled from RN notes): Yes Functional Status (Recalled from RN notes): WNL History of Present Illness Provider Complaint: Patient states that he slipped on the ice yesterday and landed on his left ankle States that since then he has been having pain and swelling in his left ankle and pain in the back of his ankle into his calf Denies any other injury Related Data Home Medications ?Medication ?Instructions ?Recorded ?Confirmed No Known Home Medications 03/06/24 03/06/24 Allergies Allergy/AdvReac Type Severity Reaction Status Date / Time No Known Allergies Allergy Verified 04/10/23 11:31 Worker's Comp Is this a Worker's Comp case?: No [facility] Disclaimer: The information contained in this section may have been updated after the patient was seen, as this information can be updated by other users. Surgical History (Reviewed 01/14/24 @ 13:58 by Josie Nicholas ([facility]), [employer]) History of eye surgery History of knee surgery History of appendectomy Social History (Updated 01/14/24 @ 14:01 by Josie Nicholas ([facility]), [employer]) Smoking Status: Never smoker alcohol intake: never current occupational status: other Travel in the last 8 weeks: None Have you lived/traveled outside [place] in past 30 days?: No Contact w/someone who lives/traveled outside US past 30 days?: No Exposure to someone with infectious disease in past 14 days?: No Do you have a fever (greater than 100.4 F or 38 C)?: No Have you tested positive for COVID-19: No Exposed to someone with COVID-19 in past 14 days?: No Do you have a sore throat?: No Do you have a cough?: No Do you have any weakness?: No Do you have any diarrhea?: No Are you experiencing any unusual bleeding?: No Do you have any muscle aches/pain?: No Do you have any abdominal pain?: No Are you experiencing loss of taste or smell?: No ROS Obtained: Yes All systems reviewed & no additional complaints except as documented and Yes Systems reviewed as appropriate & no additional complaints except as documented Constitutional Constitutional: Reports system reviewed and no additional complaints, except as documented and Reports as per HPI ENT Ears, Nose, Mouth, and Throat: Reports system reviewed and no additional complaints, except as documented and Reports as per HPI Cardiovascular Cardiovascular: Reports system reviewed and no additional complaints, except as documented and Reports as per HPI Respiratory Respiratory: Reports system reviewed and no additional complaints, except as documented and Reports as per HPI Gastrointestinal Gastrointestingal: Reports system reviewed and no additional complaints, except as documented and as per HPI Musculoskeletal Musculoskeletal: Reports system reviewed and no additional complaints, except as documented, Reports as per HPI and Reports other (pain and swelling in left ankle and back of ankle after falling yesterday) Physical Exam General General appearance: alert and in no apparent distress Head Head exam: atraumatic and normocephalic Eye Eye exam: Present normal appearance, PERRL and EOMI ENT ENT exam: Present normal exam, normal oropharynx, mucous membranes moist and TM's normal bilaterally Respiratory Respiratory exam: Present normal lung sounds bilaterally; Absent respiratory distress or wheezes Cardiovascular Cardiovascular exam: Present regular rate, normal rhythm and normal heart sounds Expanded Lower Extremity Exam Left: Ankle exam: Present tenderness and swelling Ankle image: 2 1. reports tenderness in Achilles tendon area that goes up into calf area with movement, pain and mild swelling in ankle area after falling yesterday Neurovascular/Tendon exam: Present normal capillary refill Gait: observed and limited by pain Neurological Exam Neurological exam: Present alert, oriented X3 and normal gait Medical Decision Making Medical Records Screening: Per USPSTF and CDC recommendations, given the prevalence of disease in our region, it is our hospital?s policy to screen for HIV and viral Hepatitis for all patients aged 18 and over and those with ongoing risk factors. Gregory Inquiry Pt receiving controlled substance: No Gregory was queried for this patient: No Vital Signs: 03/06/24 12:50 Temperature 97.9 F Temperature Source Oral Pulse Rate [Left Brachial] 84 Respiratory Rate 18 Blood Pressure [Left Arm] 141/98 H Blood Pressure Mean [Left Arm] 112 Blood Pressure Source [Left Arm] Automatic Cuff Blood Pressure Position [Left Arm] Sitting 02 Sat by Pulse Oximetry 97 Oxygen Delivery Method Room Air Orders (Tests/Meds): ORDERS Category Date Time Status XR ankle LT min 3V Stat Exams 03/06/24 12:28 Taken Radiology Data #1: Image(s): Ankle Image Reviewed: Yes I have reviewed radiologist's interpretation IMPRESSION: Nondisplaced fracture of the posterior malleolus. Medical Decision Narrative: Spoke with Dr Calvo and concern for Achilles tendon injury and she viewed xrays and recommended CT scan for better imaging, discussed with ED physician and patient will be moved to the ED for CT
--- NOTE | 2024-03-06 14:27 | CT_ITS ---
FINAL REPORT TECHNIQUE: Thin section axial CT images of the left ankle were obtained and reviewed. Coronal and sagittal reformats were obtained and reviewed. This study was performed with techniques to keep radiation doses as low as reasonably achievable (ALARA). Individualized dose reduction techniques using automated exposure control or adjustment of mA and/or kV according to the patient''s size were employed. CLINICAL HISTORY: preop planning COMPARISON: None FINDINGS: There is a nondisplaced coronal fracture of the posterior malleolus. There are 2 tiny linear calcifications anterior to the lateral malleolus of unknown chronicity which may represent tiny avulsion fractures arising from the lateral malleolus. Punctate bony fragment along the medial talus on image 53 of series 10/ is probably a tiny chip fracture. There is no evidence of subluxation or dislocation. There is no significant fracture of the lateral or medial malleoli. IMPRESSION: Primary finding of nondisplaced coronal fracture posterior malleolus. Reviewed, Interpreted and Dictated by Francis Spann MD Transcribed by Jazz Groves Authenticated and . [facility]
[2024-03-06 14:31] VITALS: BP 124/94; PULSE 95; RESP 16; O2SAT 96; BMI 39.3
--- NOTE | 2024-03-06 15:11 | PC.NURSE ---
PT GOING TO CT
--- NOTE | 2024-03-06 15:16 | ED_ITS ---
Discharge Plan Disposition Patient Disposition: Home, Self-Care Prescriptions Prescriptions: No Action No Known Home Medications Referrals Follow up/Referrals: Izabella Damon [Primary Care Provider] - See instructions Kyle Banegas DO [Staff Physician] - See instructions Activity Restrictions/Add. Instructions Additional Instructions/Restrictions: Follow-up with orthopedics regarding this visit to the emergency department. Information here. Walking boot at all times until following up. You may take it off at night, but do not bear weight without having walking boot in place. Clinical Impressions Clinical Impression: Closed fracture of posterior malleolus Print Language Print Language: Latvian Discharge ED Provider: Edward Hancock General Adult HPI General Chief complaint: Extremity Injury, Lower Stated complaint: [id number], LT ankle pain Time Seen by Provider: 03/06/24 13:12 Mode of Arrival: Ambulatory Source of Information: Patient and Medical Record Limitations: No Limitations Description of Symptoms (Recalled from ER Triage Doc. by RN): c/o left ankle pain after falling on the ice 2 days ago. unable to bear weight and some swelling noted History of Present Illness HPI narrative: Please note that above description of symptoms, in this electronic medical record under categorization of recalled from ER triage doctor by RN are reflective of an initial nursing assessment, however, is not reflective of my full history and physical exam that was personally taken and clarified. Consequentially, this preceding description of symptoms, which may include the patient's categorized chief complaint in the EMR, do not reflect my personal clinical impression, and the ultimate description of history of present illness and patient stated complaints should be deferred to this section of the note. Unless stated otherwise or congruent with this section of the note, additional signs, symptoms, or incongruence should be interpreted as inaccurate with my clinical impression. Related Data Home Medications ?Medication ?Instructions ?Recorded ?Confirmed No Known Home Medications 03/06/24 03/06/24 Allergies Allergy/AdvReac Type Severity Reaction Status Date / Time No Known Allergies Allergy Verified 04/10/23 11:31 [facility] Disclaimer: The information contained in this section may have been updated after the patient was seen, as this information can be updated by other users. Surgical History , WORKFORCE MANAGEMENT COORDINATOR) History of eye surgery History of knee surgery History of appendectomy Social History (Updated 01/14/24 @ 14:01 by Josie Nicholas ([facility]), WORKFORCE MANAGEMENT COORDINATOR) Smoking Status: Never smoker alcohol intake: never current occupational status: other Travel in the last 8 weeks: None Have you lived/traveled outside [place] in past 30 days?: No Contact w/someone who lives/traveled outside [place] past 30 days?: No Exposure to someone with infectious disease in past 14 days?: No Do you have a fever (greater than 100.4 F or 38 C)?: No Have you tested positive for COVID-19: No Exposed to someone with COVID-19 in past 14 days?: No Do you have a sore throat?: No Do you have a cough?: No Do you have any weakness?: No Do you have any diarrhea?: No Are you experiencing any unusual bleeding?: No Do you have any muscle aches/pain?: No Do you have any abdominal pain?: No Are you experiencing loss of taste or smell?: No Other Medical History Have you received the Flu Vaccine for this season: No Have you received the Pneumonia Vaccine: No ROS Obtained: Yes All systems reviewed & no additional complaints except as documented Physical Exam General General appearance: alert and in no apparent distress Head Head exam: atraumatic and normocephalic Eye Eye exam: Present normal appearance, PERRL and EOMI Neck Neck exam: Present normal inspection, full ROM and trachea midline Respiratory Respiratory exam: Absent respiratory distress, wheezes, stridor, accessory muscle use or prolonged expiratory phase Cardiovascular Cardiovascular exam: Present other (Pulses equal symmetric in upper and lower extremities) Abdominal Exam Abdominal exam: Present soft; Absent distention, tenderness or pulsatile mass Extremities Exam Extremities exam: Present other (Tenderness about posterior aspect of left ankle. No tenderness at Achilles insertion. Skin intact); Absent edema Neurological Exam Neurological exam: Present alert, oriented X3 and CN II-XII intact; Absent motor sensory deficit Skin Skin exam: Present warm and dry; Absent diaphoresis or erythema Medical Decision Making Medical Records Medical records reviewed: Yes I reviewed the patient's medical records. Screening: Per USPSTF and CDC recommendations, given the prevalence of disease in our region, it is our hospital?s policy to screen for HIV and viral Hepatitis for all patients aged 18 and over and those with ongoing risk factors. Gregory Inquiry Pt receiving controlled substance: No Gregory was queried for this patient: No Vital Signs: 03/06/24 12:50 03/06/24 14:31 Temperature 97.9 F Temperature Source Oral Pulse Rate [Left Brachial] 84 95 H Respiratory Rate 18 16 Blood Pressure [Left Arm] 141/98 H 124/94 H Blood Pressure Mean [Left Arm] 112 104 Blood Pressure Source [Left Arm] Automatic Cuff Blood Pressure Position [Left Arm] Sitting 02 Sat by Pulse Oximetry 97 96 Oxygen Delivery Method Room Air Room Air Orders (Tests/Meds): ORDERS Category Date Time Status CT ankle LT wo con Stat Cat Scan 03/06/24 14:27 Ordered POCUS Point of Care (ER Only) Stat Exams 03/06/24 14:27 Ordered XR ankle LT min 3V Stat Exams 03/06/24 12:28 Completed Medical Decision Narrative: 33-year-old male otherwise healthy presenting with left ankle injury. Patient states he slipped on the ice yesterday, fell on his leg and his leg ended up collapsing under him. Went to the urgent care initially, was sent over here after contacting podiatry and having x-ray consistent with posterior malleolus fracture. Per patient in urgent care, podiatry requesting CT to rule out soft tissue involvement. On independent interpretation of x-ray, patient does have isolated posterior malleolus. Does not appear to be intra-articular. Bedside [id number] ultrasound was performed of the soft tissues and patient has edema anterior to the Achilles tendon, but no evidence of Achilles rupture. CT obtained, on independent interpretation, patient does have nonarticular posterior malleolus fracture. Orthopedics was consulted and case was discussed, Dr. Banegas recommended walking boot and outpatient follow-up. Because patient at baseline without signs or symptoms of clinical decompensation, deemed appropriate for discharge. Results were relayed to patient who voiced understanding and were agreeable to outpatient management and follow up. I discussed my clinical impression with patient and answered all questions. At this time, the evidence for any other entities in the differential is insufficient to warrant any further testing or ED observation. This was explained as well. Advisory was given that persistent or worsening symptoms require further evaluation. I confirmed the understanding of this discussion. Product Developer disclaimer Much of this encounter note is an electronic middle school history teacher spoken language to printed text. Electronic middle school history teacher of the spoken language may permit errors. Although I have reviewed the note, some errors may still exist. Critical Care Critical Care Time Critical Care Time: No
--- NOTE | 2024-03-06 15:19 | PC.NURSE ---
PT BACK TO ROOM FROM CT
[2024-03-06 15:46] VITALS: BP 124/94; PULSE 95; RESP 16; TEMP 36.6; O2SAT 96
== END 2024-03-06 15:48 | disposition home or self-care (01) ==
LOC: UTC 14:09 → ER 14:23
PROVIDERS: Emergency Provider Emergency Medicine; PCP Nurse Practitioner Family
DX: S82.399A Other fracture of lower end of unspecified tibia, initial encounter for closed fracture (principal); M25.572 Pain in left ankle and joints of left foot; W00.0XXA Fall on same level due to ice and snow, initial encounter; Y93.89 Activity, other specified; Y92.9 Unspecified place or not applicable
CPT/HCPCS: 73610; 73700; 99284